=== PATIENT | male | born 1955 | race American Indian/Alaskan Native ===

== ENCOUNTER 2018-08-05 14:09 | Inpatient (IN) | payer MEDICARE ==
[2018-08-05] MEDS ORDERED: VANCOMYCIN 2,000 MG in NACL 0.9% 500 ML 500 ML IV ONE ×2 (14:52→15:30)
[2018-08-05] MEDS ORDERED: NACL 0.9% 1000 ML 1,000 ML IV ONE (14:54)
[2018-08-05] MEDS ORDERED: ZOSYN/NS 4.5GM/100ML 4.5 GM/100 ML VIAL IV SCH (15:00)
[2018-08-05] MEDS ORDERED: VANCOMYCIN PHARMACY TO DOSE IV SCH ×2 (15:00→23:00)
--- NOTE | 2018-08-05 15:02 | Emergency Department Report ---
- General Chief complaint: Wound/Laceration Stated complaint: OPEN SORES/HIGH GLUCOSE Time Seen by Provider: 08/05/18 14:44 Source: patient Mode of arrival: Wheelchair Limitations: Physical Limitation - History of Present Illness Initial comments: Mr. Prescott is a 62-year-old male with history of hypertension, insulin dependent diabetes, gangrene right lower extremity status post [id number] amputation in September 2017 presents with infected stump and infected right posterior thigh wound. Patient has foul odor coming from wound wound and purulent drainage from the distal portion of the stump. He has had generalized malaise with nausea vomiting and poor appetite. The wound has been present for 3 months. He became ill 2 days ago. Recently evaluated at [facility] in the emergency department. The daughter explained "they did not do anything.". He doesn't have a PCP. Referred to the diabetes clinic during his ED visit.. Next appointment at [place] [facility] scheduled for September. [id number] amputation occurred September 2017 for gangrene which originated from a foot ulcer. Diabetes is poorly controlled. Patient does smoke tobacco. - Related Data Allergies Allergy/AdvReac Type Severity Reaction Status Date / Time No Known Allergies Allergy Unverified 08/05/18 14:15 Abscess Boil HPI - HPI Chief Complaint: Wound/Laceration Stated Complaint: OPEN SORES/HIGH GLUCOSE Time Seen by Provider: 08/05/18 14:44 Allergies/Adverse Reactions: Allergies Allergy/AdvReac Type Severity Reaction Status Date / Time No Known Allergies Allergy Unverified 08/05/18 14:15 ED Review of Systems ROS: Stated complaint: OPEN SORES/HIGH GLUCOSE Other details as noted in HPI Comment: All other systems reviewed and negative Constitutional: malaise. denies: fever Respiratory: denies: cough Gastrointestinal: nausea, vomiting ED Past Medical Hx - Past Medical History Previous Medical History?: Yes Hx Hypertension: Yes Hx Diabetes: Yes Additional medical history: AMPUTATEE gangrene - Surgical History Additional Surgical History: RIGHT LEG - Social History Smoking Status: Current Every Day Smoker Substance Use Type: Alcohol (daily) ED Physical Exam - General Limitations: Physical Limitation General appearance: alert, in no apparent distress, other (appears chronically ill, appears in poor health) - Head Head exam: Present: atraumatic, normocephalic - Eye Eye exam: Present: EOMI. Absent: scleral icterus, conjunctival injection - ENT ENT exam: Present: mucous membranes dry, other (poor dentition and missing multiple teeth, remaining teeth decaying) - Neck Neck exam: Present: full ROM. Absent: tenderness, meningismus - Respiratory Respiratory exam: Present: normal lung sounds bilaterally. Absent: wheezes, rales, rhonchi - Cardiovascular Cardiovascular Exam: Present: normal rhythm, tachycardia. Absent: rubs, gallop - GI/Abdominal GI/Abdominal exam: Present: soft. Absent: distended, tenderness, guarding, rebound - Neurological Exam Neurological exam: Present: alert, oriented X3 - Psychiatric Psychiatric exam: Present: normal affect, normal mood - Other Other exam information: Purulent drainage from ulcer distal stump, large necrotic wound posterior thigh malodorous ED Course Vital Signs 08/05/18 14:16 Temperature 97.8 F Pulse Rate 107 H Respiratory 18 Rate Blood Pressure 130/78 O2 Sat by Pulse 98 Oximetry ED Medical Decision Making - Lab Data Result diagrams: 08/05/18 15:30 08/05/18 15:30 Laboratory Results - last 24 hr 08/05/18 08/05/18 08/05/18 14:23 15:30 15:30 WBC 9.6 RBC 5.42 H Hgb 15.2 Hct 46.7 H MCV 86 MCH 28 MCHC 33 RDW 15.5 H Plt Count 238 Lymph % (Auto) 19.0 Kidder % (Auto) 8.2 H Eos % (Auto) 0.4 Baso % (Auto) 0.9 Lymph # 1.8 Kidder # 0.8 Eos # 0.0 Baso # 0.1 Seg Neutrophils % 71.5 H Seg Neutrophils # 6.8 Sodium 128 L Potassium 4.5 Chloride 91.1 L Carbon Dioxide 19 L Anion Gap 22 BUN 31 H Creatinine 1.5 Estimated GFR 48 BUN/Creatinine Ratio 21 Glucose 414 H POC Glucose 339 H Calcium 10.7 H Total Bilirubin 0.30 AST 9 ALT 9 Alkaline Phosphatase 145 H Total Protein 9.4 H Albumin 3.6 L Albumin/Globulin Ratio 0.6 - Medical Decision Making Severely infected wound and abscess of distal stump and diabetic patient, admitted to the hospitalist service in fair condition. Upon review of labs, +relative hypovolemia with history of nausea vomiting. elevated BUN and and creatinine with hyponatremia. Patient does admit to history of daily alcohol use. He explains that he drinks beer and "liquor". Suspect possible beer [place]ia Critical Care Time: Yes Critical care time in (mins) excluding proc time.: 40 Critical care attestation.: If time is entered above; I have spent that time in minutes in the direct care of this critically ill patient, excluding procedure time. 40 minutes of critical care time excluding procedures were used in the care of the patient. Patient required multiple assessments and interventions. I reviewed the electronic medical record. I spoke with consultants involved in the care of the patient. ED Disposition Clinical Impression: Infected wound, Infection of amputation stump, Insulin dependent diabetes mellitus Disposition: OP ADMIT IP TO THIS HOSP Is pt being admited?: Yes Does the pt Need Aspirin: No Condition: Stable
[2018-08-05 15:54] LABS: Basophils # (Auto) 0.1 K/mm3 (0.0-0.1); Basophils % (Auto) 0.9 % (0.0-1.8); Eosinophils % (Auto) 0.4 % (0.0-4.3); Hematocrit 46.7 % (35.5-45.6); Hemoglobin 15.2 gm/dl (11.8-15.2); Lymphocytes # (Auto) 1.8 K/mm3 (1.2-5.4); Mean Corpuscular HGB Conc 33 % (32-34); Mean Corpuscular Volume 86 fl (84-94); Monocytes # (Auto) 0.8 K/mm3 (0.0-0.8); Monocytes % (Auto) 8.2 % (0.0-7.3); Platelet Count 238 K/mm3 (140-440); Red Blood Count 5.42 M/mm3 (3.65-5.03); Red Cell Distribution Width 15.5 % (13.2-15.2)
[2018-08-05 16:14] LABS: Albumin 3.6 g/dL (3.9-5); Calcium 10.7 mg/dL (8.4-10.2)
--- NOTE | 2018-08-05 17:24 | XRay Report ---
FINAL REPORT EXAM: XR FEMUR 2+V RT HISTORY: infected wound history of diabetes TECHNIQUE: Frontal and lateral views right femur Comparison: None FINDINGS: There is a previous amputation at the level of the proximal tibia and fibula. There is evidence of degenerative change of the patellofemoral joint. The tibiofemoral joint is not well evaluated with this study. There is no evidence of fracture, subluxation, lytic or blastic change in the visualized bony structu res. There is atherosclerotic vascular calcification. There is no evidence of air/gas in the soft tissues. IMPRESSION: 1. Previous below the knee amputation. 2. No evidence of fracture, subluxation, lytic or blastic change or periosteal reaction. If there is a clinical concern for osteomyelitis and if there is no clinical contraindication, MRI may be helpful . 3. Degenerative change patellofemoral joint. 4. Atherosclerotic vascular calcification.
[2018-08-05] MEDS: ZOSYN/NS 4.5GM/100ML 4.5 GM/100 ML VIAL IV SCH (18:52)
[2018-08-05] MEDS ORDERED: REGLAN IV PRN (22:19)
[2018-08-05] MEDS ORDERED: SODIUM CHLORIDE FLUSH SYRINGE 10 ML IV PRN (22:19)
[2018-08-05] MEDS ORDERED: TYLENOL PO PRN (22:19)
[2018-08-05] MEDS ORDERED: ZOFRAN IV PRN (22:19)
[2018-08-05] MEDS ORDERED: NACL 0.9% 1000 ML 1,000 ML IV SCH (23:00)
[2018-08-06] MEDS: UNASYN/NS 3 GM/100 ML 3 GM/100 ML BAG IV SCH ×5 (00:51→23:38)
[2018-08-06] MEDS ORDERED: VANCOMYCIN 1,750 MG in NACL 0.9% 500 ML 500 ML IV SCH (04:00)
[2018-08-06] MEDS: PERCOCET 5/325 PO PRN ×2 (04:17→21:37)
[2018-08-06 05:43] LABS: Basophils # (Auto) 0.1 K/mm3 (0.0-0.1); Basophils % (Auto) 0.8 % (0.0-1.8); Eosinophils # (Auto) 0.1 K/mm3 (0.0-0.4); Eosinophils % (Auto) 1.5 % (0.0-4.3); Hematocrit 39.8 % (35.5-45.6); Hemoglobin 13.1 gm/dl (11.8-15.2); Lymphocytes % (Auto) 24.9 % (13.4-35.0); Mean Corpuscular HGB Conc 33 % (32-34); Mean Corpuscular Volume 86 fl (84-94); Monocytes # (Auto) 0.9 K/mm3 (0.0-0.8); Monocytes % (Auto) 11.2 % (0.0-7.3); Platelet Count 192 K/mm3 (140-440); Red Blood Count 4.63 M/mm3 (3.65-5.03); Red Cell Distribution Width 15.4 % (13.2-15.2)
--- NOTE | 2018-08-06 06:46 | Event Note ---
Date: 08/05/18 See dictated H/p in reports Cellulitis/Open wound LLE
--- NOTE | 2018-08-06 08:00 | History and Physical Report ---
CHIEF COMPLAINT: Foul smelling drainage from the distal portion of the right lower extremity. HISTORY OF PRESENT ILLNESS: A 62-year-old male with history of poorly controlled diabetes, hypertension, below-knee amputation secondary to gangrene of the right lower extremity, comes in for 2 wounds, one on the stump and one on the right medial aspect of the lower part of the thigh with drainage of foul smelling pus. The wound has been there for the last 3 months. The patient has been evaluated at [facility] and was discharged. Does not have a PCP. Has a low-grade fever. Below-knee amputation was in September 2017 secondary to gangrene in the right foot. The patient is not a smoker. PAST MEDICAL HISTORY: Significant for diabetes and hypertension, right below-knee amputation. PAST SURGICAL HISTORY: As mentioned, right below-knee amputation. SOCIAL HISTORY: Smokes over a pack a day. Alcohol on a regular basis. FAMILY HISTORY: Hypertension. REVIEW OF SYSTEMS: Significant for 2 draining wounds on the right lower extremity, one on the stump and one on the medial aspect of the lower part of the thigh 3 cm x 3 cm. Otherwise, review of systems negative. PHYSICAL EXAMINATION: GENERAL: A young elderly male. VITAL SIGNS: Blood pressure is 150/78. Temperature is 98.4. Pulse is 91. Respirations are 16. HEENT: Unremarkable. Pupils equal and reactive. NECK: Supple, no lymphadenopathy, no thyromegaly. LUNGS: Clear to auscultation and percussion. Good air entry. CARDIOVASCULAR SYSTEM: S1, S2 heard. No gallop, no murmur, no rub. Apical impulse in left fifth intercostal space in midclavicular line. ABDOMEN: Soft and benign. No hepatosplenomegaly. No guarding, no rigidity. Hernial orifices are normal. EXTREMITIES: Right lower extremity below knee amputation present. On the stump, there is a small wound with drainage on the lateral aspect of the stump, 2 cm x 2 cm. Also, there is irregular ulcer on the right medial aspect of the lower part of the thigh, 3 inches x 3 inches with a depth of about 0.5 cm. Foul smelling drainage present. CENTRAL NERVOUS SYSTEM: Alert and oriented x 4. LABORATORY DATA: Significant for white count of 9600, hemoglobin of 15.2 and 46.7, platelet count of 238,000. Sodium is low 128. Glucose is high 339. BUN and creatinine is 31 and 1.5. Total protein is 9.4. Albumin is 3.6, calcium is 10.7. DIAGNOSTIC DATA: Right femur x-ray shows below-knee amputation. No evidence of fracture. No osteomyelitis. ASSESSMENT AND PLAN: 1. Right lower extremity open wound with drainage, and cellulitis. IV antibiotics, Unasyn and vancomycin initiated. Wound care initiated. Surgical consult also requested. 2. Insulin-dependent diabetes, poorly controlled. Adjust insulin dosage. The patient on Levemir 70 units, which is continued. His medication review shows 50 units of Humalog 3 times a day, to be confirmed and restarted. In the meantime, high dose sliding scale coverage. 3. Hyperlipidemia. Continue atorvastatin. 4. Hypertension. Continue lisinopril. 5. Deep venous thrombosis prophylaxis, Lovenox 40 mg subcutaneous daily. In summary, the patient has right lower extremity cellulitis and 2 training open wounds, which needs wound care and antibiotic therapy. ID consult if necessary. Surgical consult requested. JOB# [id number] VSM/NTS NATHAN
[2018-08-06 08:09] LABS: Alanine Aminotransferase 7 units/L (7-56); Albumin 2.9 g/dL (3.9-5); BUN/Creatinine Ratio 22; Blood Urea Nitrogen 26 mg/dL (9-20); Calcium 9.4 mg/dL (8.4-10.2); Hemolysis Index 3
[2018-08-06] MEDS: ZESTRIL PO SCH (09:28)
[2018-08-06] MEDS: PEPCID PO SCH ×2 (09:29→21:37)
[2018-08-06] MEDS: HumaLOG SUB-Q SCH ×3 (09:34→17:19)
--- NOTE | 2018-08-06 11:49 | Consultation ---
History of Present Illness Consult date: 08/06/18 Reason for consult: wound care Requesting physician: [facility] WHEELER Chief complaint: multiple painful wounds - History of present illness History of present illness: 62yo M with poorly controlled diabetes and a current smoker who presented to the ED due to wound pain. Patient has had chronic wounds for many months. He had an amputation of the right leg in September 2017. He has multiple wounds that are chronically draining. He does not have any regular wound care and he is not established with any wound care center. Denies any recent fevers or chills. His main issue is pain at the wounds. Past History Past Medical History: diabetes, hypertension Past Surgical History: Other (RLE amputation in 10/06) Social history: smoking, alcohol abuse. denies: prescription drug abuse, IV juliann g use Family history: no significant family history Medications and Allergies Allergies Allergy/AdvReac Type Severity Reaction Status Date / Time No Known Allergies Allergy Unverified 08/05/18 14:15 Home Medications Medication Instructions Recorded Confirmed Last Taken Type AtorvaSTATin [Lipitor] 40 mg PO QHS 08/05/18 08/05/18 Unknown History Humalog 100 UNITS/ML Kwikpen 50 units SQ TID 08/05/18 08/05/18 Unknown History Insulin Detemir [Levemir] 70 unit SQ HS 08/05/18 08/05/18 Unknown History Lisinopril [Zestril TAB] 40 mg PO QDAY 08/05/18 08/05/18 Unknown History Metformin HCl 500 mg PO BID 08/05/18 08/05/18 Unknown History Active Meds: Active Medications Acetaminophen (Tylenol) 650 mg PO Q4H PRN PRN Reason: Pain MILD(1-3)/Fever >100.5/SY Atorvastatin Calcium (Lipitor) 40 mg PO QHS [facility] Famotidine (Pepcid) 20 mg PO BID [facility] Last Admin: 08/06/18 09:29 Dose: 20 mg Documented by: Hydromorphone HCl (Dilaudid) 0.5 mg IV Q3H PRN PRN Reason: Pain , Severe (7-10) Ampicillin Sodium/Sulbactam Sodium (Unasyn/Ns 3 Gm/100 Ml) 3 gm in 100 mls @ 100 mls/hr IV Q6HR [facility]; Protocol Last Admin: 08/06/18 06:17 Dose: 100 mls/hr Documented by: Vancomycin HCl 1,250 mg/ (Sodium Chloride) 275 mls @ 166.667 mls/hr IV Q12HR [facility] Insulin Glargine (Lantus) 70 units SUB-Q QHS [facility] Insulin Human Lispro (Humalog) 0 unit SUB-Q ACHS [facility]; Protocol Last Admin: 08/06/18 09:34 Dose: Not Given Documented by: Lisinopril (Zestril) 40 mg PO QDAY [facility] Last Admin: 08/06/18 09:28 Dose: 40 mg Documented by: Metoclopramide HCl (Reglan) 10 mg IV Q6H PRN PRN Reason: Nausea And Vomiting Ondansetron HCl (Zofran) 4 mg IV Q8H PRN PRN Reason: Nausea And Vomiting Oxycodone/Acetaminophen (Percocet 5/325) 1 tab PO Q6H PRN PRN Reason: Pain, Moderate (4-6) Last Admin: 08/06/18 04:17 Dose: 1 tab Documented by: Sodium Chloride (Sodium Chloride Flush Syringe 10 Ml) 10 ml IV BID [facility] Sodium Chloride (Sodium Chloride Flush Syringe 10 Ml) 10 ml IV PRN PRN PRN Reason: LINE FLUSH Review of Systems - Constitutional chronic pain, no weight loss, no fever, no chills - Cardiovascular no chest pain - Respiratory no cough, no shortness of breath - Gastrointestinal no abdominal pain, no nausea, no vomiting - Muskuloskeletal right: knee pain, other (right thigh pain) - Integumentary wounds - Endocrine polyuria Exam Vital Signs Temp Pulse Resp BP Pulse Ox 97.8 F 107 H 18 130/78 98 08/05/18 14:16 08/05/18 14:16 08/05/18 14:16 08/05/18 14:16 08/05/18 14:16 - General physical appearance Positive: no distress, no pain, other (pleasant. Does not appear ill) - Eyes Positive: normal occular movement - Respiratory Positive: normal expansion, normal respiratory effort - Integumentary other (Multiple wounds are seen in the RLE stump site, medial aspect of the right thigh, and scrotum.) - Neurologic Neurologic: alert and oriented to time, place and person - Musculoskeletal other (contracture noted of right knee) - Psychiatric Psychiatric: appropriate mood/affect, cooperative Results - Labs 08/06/18 05:15 08/06/18 05:15 Abnormal lab results 08/05/18 08/05/18 08/05/18 Range/Units 14:23 15:30 15:30 RBC 5.42 H (3.65-5.03) M/mm3 Hct 46.7 H (35.5-45.6) % RDW 15.5 H (13.2-15.2) % Eddy % (Auto) 8.2 H (0.0-7.3) % Eddy # (0.0-0.8) K/mm3 Seg Neutrophils % 71.5 H (40.0-70.0) % Sodium 128 L (137-145) mmol/L Chloride 91.1 L (98-107) mmol/L Carbon Dioxide 19 L (22-30) mmol/L BUN 31 H (9-20) mg/dL Glucose 414 H (75-100) mg/dL POC Glucose 339 H (70-105) Hemoglobin A1c (4-6) % Calcium 10.7 H (8.4-10.2) mg/dL Alkaline Phosphatase 145 H (35-129) units/L Total Protein 9.4 H (6.3-8.2) g/dL Albumin 3.6 L (3.9-5) g/dL 08/05/18 08/06/18 08/06/18 Range/Units 22:43 05:15 05:15 RBC (3.65-5.03) M/mm3 Hct (35.5-45.6) % RDW 15.4 H (13.2-15.2) % Eddy % (Auto) 11.2 H (0.0-7.3) % Eddy # 0.9 H (0.0-0.8) K/mm3 Seg Neutrophils % (40.0-70.0) % Sodium 134 L (137-145) mmol/L Chloride (98-107) mmol/L Carbon Dioxide 18 L (22-30) mmol/L BUN 26 H (9-20) mg/dL Glucose 365 H (75-100) mg/dL POC Glucose (70-105) Hemoglobin A1c 14.2 H (4-6) % Calcium (8.4-10.2) mg/dL Alkaline Phosphatase (35-129) units/L Total Protein (6.3-8.2) g/dL Albumin 2.9 L (3.9-5) g/dL 08/06/18 Range/Units 11:23 RBC (3.65-5.03) M/mm3 Hct (35.5-45.6) % RDW (13.2-15.2) % Eddy % (Auto) (0.0-7.3) % Eddy # (0.0-0.8) K/mm3 Seg Neutrophils % (40.0-70.0) % Sodium (137-145) mmol/L Chloride (98-107) mmol/L Carbon Dioxide (22-30) mmol/L BUN (9-20) mg/dL Glucose (75-100) mg/dL POC Glucose 360 H (70-105) Hemoglobin A1c (4-6) % Calcium (8.4-10.2) mg/dL Alkaline Phosphatase (35-129) units/L Total Protein (6.3-8.2) g/dL Albumin (3.9-5) g/dL Diabetes panel 08/05/18 08/05/18 08/06/18 Range/Units 15:30 22:43 05:15 Sodium 128 L 134 L (137-145) mmol/L Potassium 4.5 4.5 (3.6-5.0) mmol/L Chloride 91.1 L 101.3 (98-107) mmol/L Carbon Dioxide 19 L 18 L (22-30) mmol/L BUN 31 H 26 H (9-20) mg/dL Creatinine 1.5 1.2 (0.8-1.5) mg/dL Glucose 414 H 365 H (75-100) mg/dL Hemoglobin A1c 14.2 H (4-6) % Calcium 10.7 H 9.4 (8.4-10.2) mg/dL AST 9 9 (5-40) units/L ALT 9 7 (7-56) units/L Alkaline Phosphatase 145 H 111 (35-129) units/L Total Protein 9.4 H 7.5 D (6.3-8.2) g/dL Albumin 3.6 L 2.9 L (3.9-5) g/dL Calcium panel 08/05/18 08/06/18 Range/Units 15:30 05:15 Calcium 10.7 H 9.4 (8.4-10.2) mg/dL Albumin 3.6 L 2.9 L (3.9-5) g/dL Pituitary panel 08/05/18 08/06/18 Range/Units 15:30 05:15 Sodium 128 L 134 L (137-145) mmol/L Potassium 4.5 4.5 (3.6-5.0) mmol/L Chloride 91.1 L 101.3 (98-107) mmol/L Carbon Dioxide 19 L 18 L (22-30) mmol/L BUN 31 H 26 H (9-20) mg/dL Creatinine 1.5 1.2 (0.8-1.5) mg/dL Glucose 414 H 365 H (75-100) mg/dL Calcium 10.7 H 9.4 (8.4-10.2) mg/dL Adrenal panel 08/05/18 08/06/18 Range/Units 15:30 05:15 Sodium 128 L 134 L (137-145) mmol/L Potassium 4.5 4.5 (3.6-5.0) mmol/L Chloride 91.1 L 101.3 (98-107) mmol/L Carbon Dioxide 19 L 18 L (22-30) mmol/L BUN 31 H 26 H (9-20) mg/dL Creatinine 1.5 1.2 (0.8-1.5) mg/dL Glucose 414 H 365 H (75-100) mg/dL Calcium 10.7 H 9.4 (8.4-10.2) mg/dL Total Bilirubin 0.30 0.20 (0.1-1.2) mg/dL AST 9 9 (5-40) units/L ALT 9 7 (7-56) units/L Alkaline Phosphatase 145 H 111 (35-129) units/L Total Protein 9.4 H 7.5 D (6.3-8.2) g/dL Albumin 3.6 L 2.9 L (3.9-5) g/dL Assessment and Plan Pt stable. I think he has more chronic wounds rather than some acute infection. He primarily needs a good debridement and then a alf wound care plan. I agree with having the nurse see him. Then, he can get plugged into the clin ic. Time=45min - Patient Problems (1) Open wound of right thigh Current Visit: Yes Status: Acute Qualifiers: Encounter type: initial encounter Qualified Code(s): S71.101A - Unspecified open wound, right thigh, initial encounter Plan to address problem: Pt stable. Appears to have a chronically draining wound. Would benefit from debridement. Due to his pain, we will perform this in the operating room with anesthesia. He is an agreement for this. Procedure, risks, benefits were discussed. All questions were answered. Consent was obtained. He ultimately needs to be established without wound care center. He needs a good long-term wound care. time=45min (2) Open wound of scrotum and testes Current Visit: Yes Status: Acute Qualifiers: Encounter type: initial encounter Qualified Code(s): S31.30XA - Unspecified open wound of scrotum and testes, initial encounter Plan to address problem: pt stable. The skin appearance in the perineal and groin areas are suggestive of hidradenitis changes. We will examine and debride the scrotal wound in the OR. (3) Open wound of right lower leg Current Visit: Yes Status: Acute Qualifiers: Encounter type: initial encounter Qualified Code(s): S81.801A - Unspecified open wound, right lower leg, initial encounter Plan to address problem: Pt stable. Pt stable. Appears to have a chronically draining wound. Would benefit from debridement. Due to his pain, we will perform this in the operating room with anesthesia. He is an agreement for this. Procedure, risks, benefits were discussed. All questions were answered. Consent was obtained.
[2018-08-06] MEDS: SODIUM CHLORIDE FLUSH SYRINGE 10 ML IV SCH ×2 (12:58→21:45)
--- NOTE | 2018-08-06 15:30 | Progress Note ---
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 Patient complaining of foul odor from the wound and purulent drainage from distal portion of the stump, the wound has imprisoned for 3 months and he became very ill 2 days prior to presentation, was complaining of nausea vomiting and poor appetite malaise Prognosis cellulitis of R LE stump Open wound of scrotum and testes Open wound of right lower leg Hypertension Diabetes moderate malnutrition Plan Empiric antibiotics optimize insulin dose Optimize meds for chronic conditions General surgery consult appreciated, patient to go to the or for debridement bundle tier consult, advised on balanced diet rich in protein and healthy fats Prophylaxis chemical History Interval history: Patient continues to have drainage from right LE stump, denies pain, he has no other complaints. Review of systems Constitutional: No fevers, no malaise, no joint pains CVS: No chest pain, no orthopnea, no dyspnea on exertion, no pedal edema GI: No abdominal pain, no diarrhea, no vomiting, no constipation Respiratory: No shortness of breath, no wheezing, no coughing Hospitalist Physical - Physical exam Narrative exam: General.: Appears well, no distress, nontoxic HEENT: Moist mucous membranes, extraocular muscles intact, no lymphadenopathy Neck: supple Cardiac: S1-S2 heard Lungs: clear to auscultation bilaterally Abdomen: soft , nontender, nondistended, bowel sounds positive Extremities/skin; Multiple wounds are seen in the RLE stump site, medial aspect of the right thigh, and scrotum Neurologic: no gross focal deficits Psych: calm, and cooperative - Constitutional Vitals: Temp Pulse Resp BP Pulse Ox 97.9 F 83 20 145/74 93 08/06/18 11:24 08/06/18 11:24 08/06/18 11:24 08/06/18 11:24 08/06/18 11:24 Results - Labs CBC & Chem 7: 08/06/18 05:15 08/06/18 05:15 Labs: Laboratory Last Values WBC 7.9 K/mm3 (4.5-11.0) 08/06/18 05:15 RBC 4.63 M/mm3 (3.65-5.03) 08/06/18 05:15 Hgb 13.1 gm/dl (11.8-15.2) 08/06/18 05:15 Hct 39.8 % (35.5-45.6) D 08/06/18 05:15 MCV 86 fl (84-94) 08/06/18 05:15 MCH 28 pg (28-32) 08/06/18 05:15 MCHC 33 % (32-34) 08/06/18 05:15 RDW 15.4 % (13.2-15.2) H 08/06/18 05:15 Plt Count 192 K/mm3 (140-440) 08/06/18 05:15 Lymph % (Auto) 24.9 % (13.4-35.0) 08/06/18 05:15 [place] % (Auto) 11.2 % (0.0-7.3) H 08/06/18 05:15 Eos % (Auto) 1.5 % (0.0-4.3) 08/06/18 05:15 Baso % (Auto) 0.8 % (0.0-1.8) 08/06/18 05:15 Lymph # 2.0 K/mm3 (1.2-5.4) 08/06/18 05:15 [place] # 0.9 K/mm3 (0.0-0.8) H 08/06/18 05:15 Eos # 0.1 K/mm3 (0.0-0.4) 08/06/18 05:15 Baso # 0.1 K/mm3 (0.0-0.1) 08/06/18 05:15 Seg Neutrophils % 61.6 % (40.0-70.0) 08/06/18 05:15 Seg Neutrophils # 4.9 K/mm3 (1.8-7.7) 08/06/18 05:15 Sodium 134 mmol/L (137-145) L 08/06/18 05:15 Potassium 4.5 mmol/L (3.6-5.0) 08/06/18 05:15 Chloride 101.3 mmol/L (98-107) 08/06/18 05:15 Carbon Dioxide 18 mmol/L (22-30) L 08/06/18 05:15 Anion Gap 19 mmol/L 08/06/18 05:15 BUN 26 mg/dL (9-20) H 08/06/18 05:15 Creatinine 1.2 mg/dL (0.8-1.5) 08/06/18 05:15 Estimated GFR > 60 ml/min 08/06/18 05:15 BUN/Creatinine Ratio 22 % 08/06/18 05:15 Glucose 365 mg/dL (75-100) H 08/06/18 05:15 POC Glucose 360 (70-105) H 08/06/18 11:23 Hemoglobin A1c 14.2 % (4-6) H 08/05/18 22:43 Calcium 9.4 mg/dL (8.4-10.2) 08/06/18 05:15 Total Bilirubin 0.20 mg/dL (0.1-1.2) 08/06/18 05:15 AST 9 units/L (5-40) 08/06/18 05:15 ALT 7 units/L (7-56) 08/06/18 05:15 Alkaline Phosphatase 111 units/L (35-129) 08/06/18 05:15 Total Protein 7.5 g/dL (6.3-8.2) D 08/06/18 05:15 Albumin 2.9 g/dL (3.9-5) L 08/06/18 05:15 Albumin/Globulin Ratio 0.6 % 08/06/18 05:15 Nutrition/Malnutrition Assess - Dietary Evaluation Nutrition/Malnutrition Findings: Nutrition Notes Start: 08/06/18 12:52 Freq: Status: Active Protocol: Document 08/06/18 12:52 LM (Rec: 08/06/18 13:39 LM [id number]) Co-Sign 08/06/18 12:52 LP Nutrition Notes 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 Pt did not appear to be 69.5 kg Subjective/Other Information Consult for skin risk. Kolby score is 16. Pt stated his appetite has not been good [employer] . Pt said he ate a couple bites of his breakfast. Pt stated he has no problems chewing or swallowing. Pt said he does not monitor DM at home. Discussed DM with pt. Burn Absent Trauma Absent #2 Nutrition Diagnosis Food and nutrition-related knowledge deficit Etiology DM As Evidenced by Signs and Symptoms Hgb A1C 14.2, BG 365 #1 Nutrition Diagnosis Increased nutrient needs ( specify in comment below) Comments: Protein Etiology Wound healing As Evidenced by Signs and Symptoms thigh and stump wound Is patient on ventilator? No Is Patient Ambulatory and/or Out of Bed No REE-([facility]-confined to bed) [phone] Calculation Used for Recommendations [facility] Additional Notes Protein: 87-104 (1.25-1.5 g/kg ) Fluids: 1 mL/kcal Nutrition Intervention Change Diet Order: Continue consitent CHO Add Supplement/Snack (indicate name/kcal Breezy BID /protein ) Provides kCal: 190 Provides Protein (gm) 5 Teaching Recipient Patient Learning Readiness Fair Teaching Methods Discussion Handout Response to Teaching Verbalize understanding Education Handouts Provided CHO counting for DM Barriers to Learning Motivation RD phone number provided Yes Patient aware of follow up options Yes Goal #1 Meet at least 75% of energy and protein needs Goal #2 Wound healing Anticipated Discharge Needs: Consitent CHO Follow-Up By: 08/11/18 Additional Comments F/U for intakes, need for ONS, weight
[2018-08-06] MEDS: GLUCOPHAGE PO SCH (21:37)
[2018-08-06] MEDS: VANCOMYCIN 1,250 MG in NACL 0.9% 250ML 250 ML IV SCH (21:44)
[2018-08-06] MEDS ORDERED: LANTUS SUB-Q SCH ×3 (22:00)
[2018-08-06] MEDS ORDERED: LOVENOX SUB-Q SCH (22:00)
[2018-08-06] MEDS: ZOSYN/NS 4.5GM/100ML 4.5 GM/100 ML VIAL IV SCH (22:07)
[2018-08-07] MEDS: HumaLOG SUB-Q SCH ×7 (00:52→22:54)
[2018-08-07] MEDS: UNASYN/NS 3 GM/100 ML 3 GM/100 ML BAG IV SCH ×3 (05:26→17:21)
[2018-08-07] MEDS ORDERED: HumaLOG SUB-Q SCH (07:30)
[2018-08-07] MEDS: SODIUM CHLORIDE FLUSH SYRINGE 10 ML IV SCH ×2 (10:30→22:53)
[2018-08-07] MEDS: GLUCOPHAGE PO SCH ×2 (10:30→22:53)
[2018-08-07] MEDS: ZESTRIL PO SCH (10:30)
[2018-08-07] MEDS: PEPCID PO SCH ×2 (10:30→22:53)
[2018-08-07] MEDS: VANCOMYCIN 1,250 MG in NACL 0.9% 250ML 250 ML IV SCH ×2 (11:15→22:52)
[2018-08-07] MEDS ORDERED: PEPCID IV ONE (13:25)
[2018-08-07] MEDS ORDERED: XYLOCAINE MPF 2% ONE (13:38)
[2018-08-07] MEDS ORDERED: SUBLIMAZE ONE (13:38)
[2018-08-07] MEDS ORDERED: DIPRIVAN 10 MG/ML IV ONE (13:43)
[2018-08-07] MEDS: NACL 0.9% 1000 ML 1,000 ML IV SCH ×2 (13:45→17:19)
[2018-08-07] MEDS ORDERED: HYDROGEN PEROXIDE ONE (14:00)
--- NOTE | 2018-08-07 14:00 | Anesthesia Consultation ---
Anesthesia Consult and Med Hx Date of service: 08/07/18 - Airway Anesthetic Teeth Evaluation: Poor ROM Head & Neck: Adequate Mental/Hyoid Distance: Adequate Mallampati Class: Class III Intubation Access Assessment: Possibly Difficult - Pulmonary Exam CTA: Yes - Cardiac Exam Cardiac Exam: RRR - Pre-Operative Health Status ASA Pre-Surgery Classification: ASA4 Proposed Anesthetic Plan: General - Pulmonary Hx Smoking: Yes Hx Respiratory Symptoms: No Hx Sleep Apnea: No - Cardiovascular System Hx Hypertension: Yes Hx Coronary Artery Disease: No Hx Pacemaker: No - Gastrointestinal Hx Gastroesophageal Reflux Disease: No - Endocrine Hx Renal Disease: No Hx End Stage Renal Disease: No Hx Insulin Dependent Diabetes: Yes Hx Thyroid Disease: No - Hematic Hx Anemia: No - Other Systems Hx Alcohol Use: Yes (Everyday) Hx Cancer: No Hx Obesity: Yes - Additional Comments Anesthesia Medical History Comments: No GAC, No FHAC
[2018-08-07] MEDS ORDERED: NACL 0.9% IR ONE (14:57)
[2018-08-07] MEDS ORDERED: DILAUDID ONE (15:02)
--- NOTE | 2018-08-07 15:03 | Anesthesia Day of Surgery ---
Anesthesia Day of Surgery - Day of Surgery Patient Examined: Yes Patient H&P Reviewed: Yes Patient is NPO: Yes
[2018-08-07] MEDS ORDERED: MARCAINE-EPI 0.5%-1:200,000 INFILTRATI ONE ×2 (15:04→15:15)
--- NOTE | 2018-08-07 15:23 | Post Operative Note ---
Date of procedure: 08/07/18 (Dictation:[id number]) Pre-op diagnosis: multiple chronic wounds on lower extremities and scrotum Post-op diagnosis: other (multiple chronic wounds on lower extremities.) Findings: chronic inflammatory tissue. No evidence of actual infection Procedure: debridement of bilateral lower extremity wounds Anesthesia: GETA Surgeon: CONG CHRISTIANSEN Estimated blood loss: minimal Pathology: none Condition: stable Disposition: PACU
--- NOTE | 2018-08-07 15:54 | Progress Note ---
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 Review of systems Constitutional: No fevers, no malaise, no joint pains CVS: No chest pain, no orthopnea, no dyspnea on exertion, no pedal edema GI: No abdominal pain, no diarrhea, no vomiting, no constipation Respiratory: No shortness of breath, no wheezing, no coughing Hospitalist Physical - Physical exam Narrative exam: General.: Appears well, no distress, nontoxic HEENT: Moist mucous membranes, extraocular muscles intact, no lymphadenopathy Neck: supple Cardiac: S1-S2 heard Lungs: clear to auscultation bilaterally Abdomen: soft , nontender, nondistended, bowel sounds positive Extremities/skin; Multiple wounds are seen in the RLE stump site, medial aspect of the right thigh, and scrotum Neurologic: no gross focal deficits Psych: calm, and cooperative - Constitutional Vitals: Temp Pulse Resp BP Pulse Ox 98.8 F 78 16 125/60 99 08/07/18 13:00 08/07/18 13:00 08/07/18 13:00 08/07/18 13:00 08/07/18 13:00 Results - Labs CBC & Chem 7: 08/06/18 05:15 08/06/18 05:15 Labs: Laboratory Last Values WBC 7.9 K/mm3 (4.5-11.0) 08/06/18 05:15 RBC 4.63 M/mm3 (3.65-5.03) 08/06/18 05:15 Hgb 13.1 gm/dl (11.8-15.2) 08/06/18 05:15 Hct 39.8 % (35.5-45.6) D 08/06/18 05:15 MCV 86 fl (84-94) 08/06/18 05:15 MCH 28 pg (28-32) 08/06/18 05:15 MCHC 33 % (32-34) 08/06/18 05:15 RDW 15.4 % (13.2-15.2) H 08/06/18 05:15 Plt Count 192 K/mm3 (140-440) 08/06/18 05:15 Lymph % (Auto) 24.9 % (13.4-35.0) 08/06/18 05:15 [place] % (Auto) 11.2 % (0.0-7.3) H 08/06/18 05:15 Eos % (Auto) 1.5 % (0.0-4.3) 08/06/18 05:15 Baso % (Auto) 0.8 % (0.0-1.8) 08/06/18 05:15 Lymph # 2.0 K/mm3 (1.2-5.4) 08/06/18 05:15 [place] # 0.9 K/mm3 (0.0-0.8) H 08/06/18 05:15 Eos # 0.1 K/mm3 (0.0-0.4) 08/06/18 05:15 Baso # 0.1 K/mm3 (0.0-0.1) 08/06/18 05:15 Seg Neutrophils % 61.6 % (40.0-70.0) 08/06/18 05:15 Seg Neutrophils # 4.9 K/mm3 (1.8-7.7) 08/06/18 05:15 Sodium 134 mmol/L (137-145) L 08/06/18 05:15 Potassium 4.5 mmol/L (3.6-5.0) 08/06/18 05:15 Chloride 101.3 mmol/L (98-107) 08/06/18 05:15 Carbon Dioxide 18 mmol/L (22-30) L 08/06/18 05:15 Anion Gap 19 mmol/L 08/06/18 05:15 BUN 26 mg/dL (9-20) H 08/06/18 05:15 Creatinine 1.2 mg/dL (0.8-1.5) 08/06/18 05:15 Estimated GFR > 60 ml/min 08/06/18 05:15 BUN/Creatinine Ratio 22 % 08/06/18 05:15 Glucose 365 mg/dL (75-100) H 08/06/18 05:15 POC Glucose 241 (70-105) H 08/07/18 12:05 Hemoglobin A1c 14.2 % (4-6) H 08/05/18 22:43 Calcium 9.4 mg/dL (8.4-10.2) 08/06/18 05:15 Total Bilirubin 0.20 mg/dL (0.1-1.2) 08/06/18 05:15 AST 9 units/L (5-40) 08/06/18 05:15 ALT 7 units/L (7-56) 08/06/18 05:15 Alkaline Phosphatase 111 units/L (35-129) 08/06/18 05:15 Total Protein 7.5 g/dL (6.3-8.2) D 08/06/18 05:15 Albumin 2.9 g/dL (3.9-5) L 08/06/18 05:15 Albumin/Globulin Ratio 0.6 % 08/06/18 05:15 Nutrition/Malnutrition Assess - Dietary Evaluation Nutrition/Malnutrition Findings: Nutrition Notes Start: 08/06/18 12:52 Freq: Status: Active Protocol: Document 08/06/18 12:52 LM (Rec: 08/06/18 13:39 LM [id number]) Co-Sign 08/06/18 12:52 LP Nutrition Notes Need for 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 Pt did not appear to be 69.5 kg Subjective/Other Information Consult for skin risk. Kolby score is 16. 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 Pt said he ate a couple bites of his breakfast. Pt stated he has no problems chewing or swallowing. Pt said he does not monitor DM at home. Discussed DM with pt. Burn Absent Trauma Absent #2 Nutrition Diagnosis Food and nutrition-related knowledge deficit Etiology DM As Evidenced by Signs and Symptoms Hgb A1C 14.2, BG 365 #1 Nutrition Diagnosis Increased nutrient needs ( specify in comment below) Comments: Protein Etiology Wound healing As Evidenced by Signs and Symptoms thigh and stump wound Is patient on ventilator? No Is Patient Ambulatory and/or Out of Bed No REE-([facility]-confined to bed) [phone] Calculation Used for Recommendations [facility] Additional Notes Protein: 87-104 (1.25-1.5 g/kg ) Fluids: 1 mL/kcal Nutrition Intervention Change Diet Order: Continue consitent CHO Add Supplement/Snack (indicate name/kcal Breezy BID /protein ) Provides kCal: 190 Provides Protein (gm) 5 Teaching Recipient Patient Learning Readiness Fair Teaching Methods Discussion Handout Response to Teaching Verbalize understanding Education Handouts Provided CHO counting for DM Barriers to Learning Motivation RD phone number provided Yes Patient aware of follow up options Yes Goal #1 Meet at least 75% of energy and protein needs Goal #2 Wound healing Anticipated Discharge Needs: Consitent CHO Follow-Up By: 08/11/18 Additional Comments F/U for intakes, need for ONS, weight
--- NOTE | 2018-08-07 18:06 | Operative Report ---
PREOPERATIVE DIAGNOSIS: Multiple chronic wounds on both lower extremities and scrotum. POSTOPERATIVE DIAGNOSIS: Multiple chronic wounds on both lower extremities. PROCEDURE: Debridement of multiple wounds on both lower extremities. ATTENDING SURGEON: Sarai Gibson MD ANESTHESIA: General. ESTIMATED BLOOD LOSS: Minimal. FLUIDS: 300 mL. FINDINGS: No evidence of active infection. The patient primarily had chronic inflammatory wounds with essentially scab-like tissue over the wounds. SPECIMENS: None. DRAINS: None. COMPLICATIONS: Stable, transferred to Recovery Room. INDICATIONS: This is a 62-year-old male with poorly controlled diabetes as well as smoking history, who presented due to pain in the lower extremities from his wounds. General Surgery was consulted due to concern of undrained infections. The patient says to be in need for evaluation and debridement of wounds in the operating room as they were too tender to examine and manage at the bedside. Procedure, risks, benefits were explained to the patient. Risks included but were not limited to infection, bleeding, pain, injury to surrounding structures, possible need for further procedures in the future. The patient understood and consented. OPERATIVE NOTE: The patient was brought down to the operating room and placed on the table in supine position. After adequate general anesthesia was established, patient's wounds were examined to determine positioning. Sterile prep and drape was performed. No SCDs were in place. Antibiotics were already scheduled and being given. A timeout was called. I began on the left lower extremity. There was a small opening towards the posterior aspect of the left thigh and there was a small amount of purulent drainage. It ended up being a 2 cm pocket that just needed to be irrigated out. There was no underlying abscess that was undrained. I think it was fluid that had just collected there and since he was not getting regular wound care, was not being cleaned out. Once we cleaned out the very small amount of fluid, there was no other infectious component and the cavity was very small. Ultimately, this wound was irrigated and then packed with iodoform. We then examined the scrotum. Initially what I thought to be a wound was actually a previous wound that had healed; however, the healing took place such that there was a crevice down the middle that looked like the wound. Once we spread out the tissue, we realized that it had completely lysed. There was no wound at the base of the scrotum. We then turned our attention to the right leg. He had one remaining stitch at his stump that we removed, it was a Prolene suture. There was no abscess cavity associated with it. The 1 cm wound that was to the right of it also did not track anywhere. It was very superficial, it was simply unepithelialized tissue. No infection was found there. His main area was on the medial and posterior aspect of the right thigh; what was thought to be multiple small abscess cavities when we evaluated him at the bedside, really turned out to be overlying tissue that was scab-like quality. In that I was able to essentially scrape off all of this tissue with blunt dissection; some sharp dissection was required, but underneath it, we found epithelialized tissue and areas of chronic inflammatory tissue, which we also bluntly debrided back to more healthy base. Hemostasis was achieved with electrocautery. There were no underlying pockets of purulent material. There was no active infection. It was simply wounds that had not been taken care of properly and some fluid that had accumulated there, but I saw no evidence of any infection and I saw really a lot of healing that had taken place with what was unusual soft scabbed like tissue over the top of it. Once hemostasis was achieved, wounds were clean gauze soaked with 0.5% Marcaine with epinephrine was applied to the wound on the posterior medial aspect of the right thigh. He also had a small area on the anterior aspect of the lower leg that we cleaned off in the same manner, then applied the dressing. ABDs were placed. Wound was wrapped with Kerlix and then Coban. We wrapped the left leg with Kerlix as well. The patient tolerated procedure well. There were no complications. All counts were correct. The patient was stable, transferred to Recovery. JOB# [id number] MICHELLE/EMMA
[2018-08-07] MEDS ORDERED: LANTUS SUB-Q SCH (22:00)
[2018-08-07] MEDS: PERCOCET 5/325 PO PRN (22:53)
[2018-08-08] MEDS: UNASYN/NS 3 GM/100 ML 3 GM/100 ML BAG IV SCH ×4 (01:21→18:00)
[2018-08-08] MEDS: HumaLOG SUB-Q SCH ×7 (08:57→23:30)
[2018-08-08] MEDS: GLUCOPHAGE PO SCH ×2 (08:59→23:31)
[2018-08-08] MEDS: PEPCID PO SCH ×2 (09:06→23:31)
[2018-08-08] MEDS: SODIUM CHLORIDE FLUSH SYRINGE 10 ML IV SCH ×2 (09:06→23:32)
[2018-08-08] MEDS: ZESTRIL PO SCH (09:06)
[2018-08-08] MEDS: VANCOMYCIN 1,250 MG in NACL 0.9% 250ML 250 ML IV SCH (11:36)
[2018-08-08] MEDS: DILAUDID IV PRN ×2 (12:33→17:15)
--- NOTE | 2018-08-08 14:28 | Progress Note ---
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 Patient complaining of foul odor from the wound and purulent drainage from distal portion of the stump, the wound has imprisoned for 3 months and he became very ill 2 days prior to presentation, was complaining of nausea vomiting and poor appetite malaise Prognosis cellulitis of R LE stump Open wound of scrotum and testes Open wound of right lower leg Hypertension Diabetes moderate malnutrition tobacco abuse and dependence Plan Empiric antibiotics, ID consult, wound care -Counseled about cessation of tobacco, patient states that he has no desire to quit. Offered nicotine patches, he refused optimize insulin dose Optimize meds for chronic conditions General surgery consult appreciated, sp surgical debridement on 08/07 executive community planning consult, advised on balanced diet rich in protein and healthy fats Prophylaxis chemical Tentative dc on Saturday after wound care has been set up, and after ID has given abx plan History Interval history: Patient continues to have drainage from right LE stump, it is much reduced, denies pain, he has no other complaints. Review of systems Constitutional: No fevers, no malaise, no joint pains CVS: No chest pain, no orthopnea, no dyspnea on exertion, no pedal edema GI: No abdominal pain, no diarrhea, no vomiting, no constipation Respiratory: No shortness of breath, no wheezing, no coughing Hospitalist Physical - Physical exam Narrative exam: General.: Appears well, no distress, nontoxic HEENT: Moist mucous membranes, extraocular muscles intact, no lymphadenopathy Neck: supple Cardiac: S1-S2 heard Lungs: clear to auscultation bilaterally Abdomen: soft , nontender, nondistended, bowel sounds positive Extremities/skin; Multiple wounds are seen in the RLE stump site, medial aspect of the right thigh, and scrotum Neurologic: no gross focal deficits Psych: calm, and cooperative - Constitutional Vitals: Temp Pulse Resp BP Pulse Ox 97.7 F 68 20 117/75 97 08/08/18 05:52 08/08/18 09:06 08/08/18 12:33 08/08/18 05:52 08/08/18 05:52 Results - Labs CBC & Chem 7: 08/06/18 05:15 08/06/18 05:15 Labs: Laboratory Last Values WBC 7.9 K/mm3 (4.5-11.0) 08/06/18 05:15 RBC 4.63 M/mm3 (3.65-5.03) 08/06/18 05:15 Hgb 13.1 gm/dl (11.8-15.2) 08/06/18 05:15 Hct 39.8 % (35.5-45.6) D 08/06/18 05:15 MCV 86 fl (84-94) 08/06/18 05:15 MCH 28 pg (28-32) 08/06/18 05:15 MCHC 33 % (32-34) 08/06/18 05:15 RDW 15.4 % (13.2-15.2) H 08/06/18 05:15 Plt Count 192 K/mm3 (140-440) 08/06/18 05:15 Lymph % (Auto) 24.9 % (13.4-35.0) 08/06/18 05:15 [place] % (Auto) 11.2 % (0.0-7.3) H 08/06/18 05:15 Eos % (Auto) 1.5 % (0.0-4.3) 08/06/18 05:15 Baso % (Auto) 0.8 % (0.0-1.8) 08/06/18 05:15 Lymph # 2.0 K/mm3 (1.2-5.4) 08/06/18 05:15 [place] # 0.9 K/mm3 (0.0-0.8) H 08/06/18 05:15 Eos # 0.1 K/mm3 (0.0-0.4) 08/06/18 05:15 Baso # 0.1 K/mm3 (0.0-0.1) 08/06/18 05:15 Seg Neutrophils % 61.6 % (40.0-70.0) 08/06/18 05:15 Seg Neutrophils # 4.9 K/mm3 (1.8-7.7) 08/06/18 05:15 Sodium 134 mmol/L (137-145) L 08/06/18 05:15 Potassium 4.5 mmol/L (3.6-5.0) 08/06/18 05:15 Chloride 101.3 mmol/L (98-107) 08/06/18 05:15 Carbon Dioxide 18 mmol/L (22-30) L 08/06/18 05:15 Anion Gap 19 mmol/L 08/06/18 05:15 BUN 26 mg/dL (9-20) H 08/06/18 05:15 Creatinine 1.2 mg/dL (0.8-1.5) 08/06/18 05:15 Estimated GFR > 60 ml/min 08/06/18 05:15 BUN/Creatinine Ratio 22 % 08/06/18 05:15 Glucose 365 mg/dL (75-100) H 08/06/18 05:15 POC Glucose 217 (70-105) H 08/08/18 11:26 Hemoglobin A1c 14.2 % (4-6) H 08/05/18 22:43 Calcium 9.4 mg/dL (8.4-10.2) 08/06/18 05:15 Total Bilirubin 0.20 mg/dL (0.1-1.2) 08/06/18 05:15 AST 9 units/L (5-40) 08/06/18 05:15 ALT 7 units/L (7-56) 08/06/18 05:15 Alkaline Phosphatase 111 units/L (35-129) 08/06/18 05:15 Total Protein 7.5 g/dL (6.3-8.2) D 08/06/18 05:15 Albumin 2.9 g/dL (3.9-5) L 08/06/18 05:15 Albumin/Globulin Ratio 0.6 % 08/06/18 05:15 Vancomycin Trough 19.7 ug/mL (5.0-20.0) 08/08/18 10:28 Nutrition/Malnutrition Assess - Dietary Evaluation Nutrition/Malnutrition Findings: Nutrition Notes Start: 08/06/18 12:52 Freq: Status: Active Protocol: Document 08/06/18 12:52 LM (Rec: 08/06/18 13:39 LM [id number]) Co-Sign 08/06/18 12:52 LP Nutrition Notes 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 Pt did not appear to be 69.5 kg Subjective/Other Information Consult for skin risk. Kolby score is 16. Pt stated his appetite has not been good [employer] FARM[employer] . Pt said he ate a couple bites of his breakfast. Pt stated he has no problems chewing or swallowing. Pt said he does not monitor DM at home. Discussed DM with pt. Burn Absent Trauma Absent #2 Nutrition Diagnosis Food and nutrition-related knowledge deficit Etiology DM As Evidenced by Signs and Symptoms Hgb A1C 14.2, BG 365 #1 Nutrition Diagnosis Increased nutrient needs ( specify in comment below) Comments: Protein Etiology Wound healing As Evidenced by Signs and Symptoms thigh and stump wound Is patient on ventilator? No Is Patient Ambulatory and/or Out of Bed No REE-(Bozman-St. Jeor-confined to bed) 9144.128 Calculation Used for Recommendations [facility] Additional Notes Protein: 87-104 (1.25-1.5 g/kg ) Fluids: 1 mL/kcal Nutrition Intervention Change Diet Order: Continue consitent CHO Add Supplement/Snack (indicate name/kcal Breezy BID /protein ) Provides kCal: 190 Provides Protein (gm) 5 Teaching Recipient Patient Learning Readiness Fair Teaching Methods Discussion Handout Response to Teaching Verbalize understanding Education Handouts Provided CHO counting for DM Barriers to Learning Motivation RD phone number provided Yes Patient aware of follow up options Yes Goal #1 Meet at least 75% of energy and protein needs Goal #2 Wound healing Anticipated Discharge Needs: Consitent CHO Follow-Up By: 08/11/18 Additional Comments F/U for intakes, need for ONS, weight
--- NOTE | 2018-08-08 15:49 | Progress Note ---
Assessment and Plan - Patient Problems (1) Open wound of right thigh Current Visit: Yes Status: Acute Qualifiers: Encounter type: initial encounter Qualified Code(s): S71.101A - Unspecified open wound, right thigh, initial encounter Plan to address problem: pt stable. s/p wound debridement - 08/07/18 - POD#1. No evidence of infection at time of debridement. This was simply very poorly kept wounds with a weak scab- like covering. Pt simply needs good wound care. Can be done at the wound care center. Pt may be d/c'd anytime from surgical perspective. f/u in wound care clinic please call with questions. Subjective Date of service: 08/08/18 Patient Reports: Positive: no new complaints, feels better Objective Vital Signs - 12hr 08/08/18 08/08/18 08/08/18 05:52 09:06 12:33 Temperature 97.7 F Pulse Rate 68 68 Respiratory 18 20 Rate Blood Pressure 117/75 O2 Sat by Pulse 97 Oximetry - General physical appearance no distress, no pain, other (good spirits) - Respiratory normal expansion, normal respiratory effort - Musculoskeletal other (dressings dry) - Psychiatric oriented to time, oriented to person, oriented to place, speech is normal, memory intact - Labs 08/06/18 05:15 08/06/18 05:15
[2018-08-08] MEDS ORDERED: AMBIEN PO ONE (22:00)
[2018-08-08] MEDS: LANTUS SUB-Q SCH (23:29)
[2018-08-08] MEDS: PERCOCET 5/325 PO PRN (23:30)
[2018-08-08] MEDS: LOVENOX SUB-Q SCH (23:30)
[2018-08-08] MEDS: VANCOMYCIN/NS 1 GM/250 ML 1 GM/250 ML BAG IV SCH (23:32)
[2018-08-09] MEDS: UNASYN/NS 3 GM/100 ML 3 GM/100 ML BAG IV SCH ×4 (01:05→17:49)
[2018-08-09 08:02] LABS: BUN/Creatinine Ratio 10; Blood Urea Nitrogen 10 mg/dL (9-20); Calcium 8.9 mg/dL (8.4-10.2); Hemolysis Index 3
[2018-08-09] MEDS: HumaLOG SUB-Q SCH ×7 (08:42→23:05)
[2018-08-09] MEDS: PEPCID PO SCH ×2 (10:45→22:26)
[2018-08-09] MEDS: GLUCOPHAGE PO SCH ×2 (10:45→22:27)
[2018-08-09] MEDS: ZESTRIL PO SCH (10:45)
[2018-08-09] MEDS: SODIUM CHLORIDE FLUSH SYRINGE 10 ML IV SCH ×2 (10:47→22:26)
[2018-08-09] MEDS: VANCOMYCIN/NS 1 GM/250 ML 1 GM/250 ML BAG IV SCH ×2 (11:39→22:26)
[2018-08-09] MEDS: PERCOCET 5/325 PO PRN (11:45)
--- NOTE | 2018-08-09 16:56 | Progress Note ---
Assessment and Plan - Patient Problems (1) Infection of amputation stump Current Visit: Yes Status: Acute Plan to address problem: Agent with infected stump site with cellulitis now looks excellent status post debridement does not appear to be infected at this time. Currently on vancomycin will continue vancomycin. Blood cultures show no growth. Patient had several open areas or groin scrotum testes minimal bleeding. Continue local wound care as well. (2) Insulin dependent diabetes mellitus Current Visit: Yes Status: Acute Plan to address problem: Patient diabetes has fair control. No new changes continue insulin as ordered. Patient to be discharged on Saturday with wound clinic follow-up. History Interval history: Patient upbeat and out of bed. Pain is well controlled. Discussed about lower extremity cellulitis. Has resolved. Patient status post debridement pain control plan to discharge on Saturday with wound care and antibiotics. Hospitalist Physical - Constitutional Vitals: Temp Pulse Resp BP Pulse Ox 97.4 F L 68 18 137/70 96 08/09/18 11:28 08/09/18 11:28 08/09/18 11:28 08/09/18 11:28 08/09/18 11:28 General appearance: Present: no acute distress - EENT Eyes: Present: PERRL, EOM intact ENT: hearing intact, clear oral mucosa, dentition normal - Neck Neck: Present: supple, normal ROM - Respiratory Respiratory effort: normal Respiratory: bilateral: CTA - Cardiovascular Rhythm: regular Heart Sounds: Present: S1 & S2 - Extremities Extremities: no ischemia, pulses intact, pulses symmetrical, normal temperature Extremity abnormal: other (some edema around polyp. Arava debridement looks good. Still some serosanguineous drainage) Peripheral Pulses: abnormal - Abdominal General gastrointestinal: soft, non-tender, non-distended, normal bowel sounds - Integumentary Integumentary: Present: clear - Psychiatric Psychiatric: appropriate mood/affect, cooperative - Neurologic Neurologic: CNII-XII intact Results - Labs CBC & Chem 7: 08/06/18 05:15 08/09/18 07:30 Labs: Laboratory Last Values WBC 7.9 K/mm3 (4.5-11.0) 08/06/18 05:15 RBC 4.63 M/mm3 (3.65-5.03) 08/06/18 05:15 Hgb 13.1 gm/dl (11.8-15.2) 08/06/18 05:15 Hct 39.8 % (35.5-45.6) D 08/06/18 05:15 MCV 86 fl (84-94) 08/06/18 05:15 MCH 28 pg (28-32) 08/06/18 05:15 MCHC 33 % (32-34) 08/06/18 05:15 RDW 15.4 % (13.2-15.2) H 08/06/18 05:15 Plt Count 192 K/mm3 (140-440) 08/06/18 05:15 Lymph % (Auto) 24.9 % (13.4-35.0) 08/06/18 05:15 [place] % (Auto) 11.2 % (0.0-7.3) H 08/06/18 05:15 Eos % (Auto) 1.5 % (0.0-4.3) 08/06/18 05:15 Baso % (Auto) 0.8 % (0.0-1.8) 08/06/18 05:15 Lymph # 2.0 K/mm3 (1.2-5.4) 08/06/18 05:15 [place] # 0.9 K/mm3 (0.0-0.8) H 08/06/18 05:15 Eos # 0.1 K/mm3 (0.0-0.4) 08/06/18 05:15 Baso # 0.1 K/mm3 (0.0-0.1) 08/06/18 05:15 Seg Neutrophils % 61.6 % (40.0-70.0) 08/06/18 05:15 Seg Neutrophils # 4.9 K/mm3 (1.8-7.7) 08/06/18 05:15 Sodium 139 mmol/L (137-145) 08/09/18 07:30 Potassium 4.2 mmol/L (3.6-5.0) 08/09/18 07:30 Chloride 107.4 mmol/L (98-107) H 08/09/18 07:30 Carbon Dioxide 21 mmol/L (22-30) L 08/09/18 07:30 Anion Gap 15 mmol/L 08/09/18 07:30 BUN 10 mg/dL (9-20) 08/09/18 07:30 Creatinine 1.0 mg/dL (0.8-1.5) 08/09/18 07:30 Estimated GFR > 60 ml/min 08/09/18 07:30 BUN/Creatinine Ratio 10 % 08/09/18 07:30 Glucose 202 mg/dL (75-100) H 08/09/18 07:30 POC Glucose 109 (70-105) H 08/09/18 11:10 Hemoglobin A1c 14.2 % (4-6) H 08/05/18 22:43 Calcium 8.9 mg/dL (8.4-10.2) 08/09/18 07:30 Total Bilirubin 0.20 mg/dL (0.1-1.2) 08/06/18 05:15 AST 9 units/L (5-40) 08/06/18 05:15 ALT 7 units/L (7-56) 08/06/18 05:15 Alkaline Phosphatase 111 units/L (35-129) 08/06/18 05:15 Total Protein 7.5 g/dL (6.3-8.2) D 08/06/18 05:15 Albumin 2.9 g/dL (3.9-5) L 08/06/18 05:15 Albumin/Globulin Ratio 0.6 % 08/06/18 05:15 Vancomycin Trough 19.7 ug/mL (5.0-20.0) 08/08/18 10:28 Nutrition/Malnutrition Assess - Dietary Evaluation Nutrition/Malnutrition Findings: Nutrition Notes Start: 08/06/18 12:52 Freq: Status: Active Protocol: Document 08/09/18 12:17 DAVIDE (Rec: 08/09/18 12:19 DAVIDE [email or web address] [email or web address]) Nutrition Notes Need for Assessment generated from: MD Order Initial or Follow up Brief Note Subjective/Other Information RD consulted for malnutrition. Pt assessed on 08/06/18, educated on CHO-controlled diet, prescribed ONS for wound healing and is being followed for intakes and need for further nutrition supplementation. Nutrition Intervention Follow-Up By: 08/12/18 Additional Comments F/U: intakes, need for additional ONS
[2018-08-09] MEDS: LOVENOX SUB-Q SCH (22:28)
[2018-08-09] MEDS: LANTUS SUB-Q SCH (23:07)
[2018-08-10] MEDS: UNASYN/NS 3 GM/100 ML 3 GM/100 ML BAG IV SCH ×4 (00:36→18:10)
--- NOTE | 2018-08-10 07:23 | Progress Note ---
Assessment and Plan Assessment and plan: - Patient Problems (1) Infection of amputation stump Current Visit: Yes Status: Acute Plan to address problem: Agent with infected stump site with cellulitis now looks excellent status post debridement does not appear to be infected at this time. Currently on vancomycin will continue vancomycin. Blood cultures show no growth. Patient had several open areas or groin scrotum testes minimal bleeding. Continue local wound care as well. Better wound care advised. Follow up at the wound care clinic. Will not need further antibiotics on discharge. (2) Insulin dependent diabetes mellitus Current Visit: Yes Status: Acute Plan to address problem: Patient diabetes has fair control. No new changes continue insulin as ordered. Patient to be discharged on Saturday with wound clinic follow-up. History Interval history: Patient seen and examined today, no new complaints. Hospitalist Physical - Physical exam Narrative exam: General appearance: Present: no acute distress - EENT Eyes: Present: PERRL, EOM intact ENT: hearing intact, clear oral mucosa, dentition normal - Neck Neck: Present: supple, normal ROM - Respiratory Respiratory effort: normal Respiratory: bilateral: CTA - Cardiovascular Rhythm: regular Heart Sounds: Present: S1 & S2 - Extremities Extremities: no ischemia, pulses intact, pulses symmetrical, normal temperature, RIGHT bKA Extremity abnormal: other (some edema around polyp. Arava debridement looks good. Still some serosanguineous drainage) Peripheral Pulses: abnormal - Abdominal General gastrointestinal: soft, non-tender, non-distended, normal bowel sounds - Integumentary Integumentary: Present: multiple cellultic changes to groing with some excuration, non draining at this time. - Psychiatric Psychiatric: appropriate mood/affect, cooperative - Neurologic Neurologic: CNII-XII intact - Constitutional Vitals: Temp Pulse Resp BP Pulse Ox 98.4 F 70 20 123/73 100 08/10/18 04:46 08/10/18 04:46 08/10/18 04:46 08/10/18 04:46 08/10/18 04:46 General appearance: Present: no acute distress Results - Labs CBC & Chem 7: 08/06/18 05:15 08/09/18 07:30 Labs: Laboratory Last Values WBC 7.9 K/mm3 (4.5-11.0) 08/06/18 05:15 RBC 4.63 M/mm3 (3.65-5.03) 08/06/18 05:15 Hgb 13.1 gm/dl (11.8-15.2) 08/06/18 05:15 Hct 39.8 % (35.5-45.6) D 08/06/18 05:15 MCV 86 fl (84-94) 08/06/18 05:15 MCH 28 pg (28-32) 08/06/18 05:15 MCHC 33 % (32-34) 08/06/18 05:15 RDW 15.4 % (13.2-15.2) H 08/06/18 05:15 Plt Count 192 K/mm3 (140-440) 08/06/18 05:15 Lymph % (Auto) 24.9 % (13.4-35.0) 08/06/18 05:15 [place] % (Auto) 11.2 % (0.0-7.3) H 08/06/18 05:15 Eos % (Auto) 1.5 % (0.0-4.3) 08/06/18 05:15 Baso % (Auto) 0.8 % (0.0-1.8) 08/06/18 05:15 Lymph # 2.0 K/mm3 (1.2-5.4) 08/06/18 05:15 [place] # 0.9 K/mm3 (0.0-0.8) H 08/06/18 05:15 Eos # 0.1 K/mm3 (0.0-0.4) 08/06/18 05:15 Baso # 0.1 K/mm3 (0.0-0.1) 08/06/18 05:15 Seg Neutrophils % 61.6 % (40.0-70.0) 08/06/18 05:15 Seg Neutrophils # 4.9 K/mm3 (1.8-7.7) 08/06/18 05:15 Sodium 139 mmol/L (137-145) 08/09/18 07:30 Potassium 4.2 mmol/L (3.6-5.0) 08/09/18 07:30 Chloride 107.4 mmol/L (98-107) H 08/09/18 07:30 Carbon Dioxide 21 mmol/L (22-30) L 08/09/18 07:30 Anion Gap 15 mmol/L 08/09/18 07:30 BUN 10 mg/dL (9-20) 08/09/18 07:30 Creatinine 1.0 mg/dL (0.8-1.5) 08/09/18 07:30 Estimated GFR > 60 ml/min 08/09/18 07:30 BUN/Creatinine Ratio 10 % 08/09/18 07:30 Glucose 202 mg/dL (75-100) H 08/09/18 07:30 POC Glucose 103 (70-105) 08/09/18 20:46 Hemoglobin A1c 14.2 % (4-6) H 08/05/18 22:43 Calcium 8.9 mg/dL (8.4-10.2) 08/09/18 07:30 Total Bilirubin 0.20 mg/dL (0.1-1.2) 08/06/18 05:15 AST 9 units/L (5-40) 08/06/18 05:15 ALT 7 units/L (7-56) 08/06/18 05:15 Alkaline Phosphatase 111 units/L (35-129) 08/06/18 05:15 Total Protein 7.5 g/dL (6.3-8.2) D 08/06/18 05:15 Albumin 2.9 g/dL (3.9-5) L 08/06/18 05:15 Albumin/Globulin Ratio 0.6 % 08/06/18 05:15 Vancomycin Trough 19.7 ug/mL (5.0-20.0) 08/08/18 10:28 Nutrition/Malnutrition Assess - Dietary Evaluation Nutrition/Malnutrition Findings: Nutrition Notes Start: 08/06/18 12:52 Freq: Status: Active Protocol: Document 08/09/18 12:17 DAVIDE (Rec: 08/09/18 12:19 [facility] [id number] [email or web address]) Nutrition Notes Need for Assessment generated from: MD Order Initial or Follow up Brief Note Subjective/Other Information RD consulted for malnutrition. Pt assessed on 08/06/18, educated on CHO-controlled diet, prescribed ONS for wound healing and is being followed for intakes and need for further nutrition supplementation. Nutrition Intervention Follow-Up By: 08/12/18 Additional Comments F/U: intakes, need for additional ONS
[2018-08-10] MEDS: HumaLOG SUB-Q SCH ×7 (08:12→21:40)
[2018-08-10] MEDS: GLUCOPHAGE PO SCH ×2 (11:11→21:31)
[2018-08-10] MEDS: PEPCID PO SCH ×2 (11:11→21:31)
[2018-08-10] MEDS: SODIUM CHLORIDE FLUSH SYRINGE 10 ML IV SCH ×2 (11:12→21:43)
[2018-08-10] MEDS: ZESTRIL PO SCH (11:12)
[2018-08-10] MEDS: VANCOMYCIN/NS 1 GM/250 ML 1 GM/250 ML BAG IV SCH ×2 (11:12→21:27)
[2018-08-10] MEDS: PERCOCET 5/325 PO PRN (15:35)
[2018-08-10] MEDS: NACL 0.9% 1000 ML 1,000 ML IV SCH (15:38)
--- NOTE | 2018-08-10 15:49 | Consultation ---
History of Present Illness - Reason for Consult Consult date: 08/10/18 cellulitis Requesting physician: SINGH [place] - History of Present Illness 62 y/o male with history of diabetes, gangrene right lower extremity status post [id number] amputation in September 2017, HTN; admitted on 08/05/2018 with multiple painful wounds - right inner / post thigh, right ant stump, scrotum and perineal and left chest. Patient has foul odor coming from wound wound and purulent drainage from the distal portion of the stump. He has had generalized malaise with nausea vomiting and poor appetite. The wound has been present for 3 months. Denies fever. Poorly controlled DM at home. He does not have PCP. In the ED< temp 97.8, HR 107, BP 130/78, R 18, O2 sat 98%. WBC 9.6. Hg 15.2. Plat 238. Creat 1.5. A1C 14. Blood culture 08/05/2018 negative. XR right left no periostial reaction. ROS: General: no fever, no chills, no nightsweats,+ weakness, + anorexia Cutaneous:+multiple wounds Head: no headaches or injury Eyes: no changes in vision, eye pain, double vision Ears: no ear pain, ear discharge, ringing or hearing loss Nose: no nose bleeding, stuffiness Mouth & throat: no bleeding gums, no horseness, no dental problems, or swollen glands Neck: no pain, node enlargement/lumps, tyroid enlargement or tenderness Respiratory: no cough, wheezing, no sputum, hemoptysis, pleuritic chest pain Cardiovascular: no chest pain, leg edema, cyanosis, ZAM[place]A, orthopnea Musculoskeletal: no decreased joint motion, no left leg tenderness, no swelling Gastrointestinal: no nausea, vomiting, no hematemesis, diarrhea, constipation, Genitourinary/Reproductive: no frequent urination, no dysuria, hematuria, incontinence Neurogical: no seizures, no headaches, no weakness, no paresthesias, no loss of speech or vision Psychiatric: stable mood; no excessive anxiety, sadness or moodiness Past History Past Medical History: diabetes, hypertension Past Surgical History: Other (RLE amputation in 10/06) Social history: smoking, alcohol abuse. denies: prescription drug abuse, IV drug use Family history: no significant family history Medications and Allergies Allergies Allergy/AdvReac Type Severity Reaction Status Date / Time No Known Allergies Allergy Unverified 08/05/18 14:15 Home Medications Medication Instructions Recorded Confirmed Last Taken Type AtorvaSTATin [Lipitor] 40 mg PO QHS 08/05/18 08/05/18 Unknown History Humalog 100 UNITS/ML Kwikpen 50 units SQ TID 08/05/18 08/05/18 Unknown History Insulin Detemir [Levemir] 70 unit SQ HS 08/05/18 08/05/18 Unknown History Lisinopril [Zestril TAB] 40 mg PO QDAY 08/05/18 08/05/18 Unknown History Metformin HCl 500 mg PO BID 08/05/18 08/05/18 Unknown History Active Meds: Active Medications Acetaminophen (Tylenol) 650 mg PO Q4H PRN PRN Reason: Pain MILD(1-3)/Fever >100.5/SY Atorvastatin Calcium (Lipitor) 40 mg PO QHS [facility] Last Admin: 08/09/18 22:26 Dose: 40 mg Documented by: Enoxaparin Sodium (Lovenox) 40 mg SUB-Q QDAY@2200 [facility] Last Admin: 08/09/18 22:28 Dose: 40 mg Documented by: Famotidine (Pepcid) 20 mg PO BID [facility] Last Admin: 08/10/18 11:11 Dose: 20 mg Documented by: Hydromorphone HCl (Dilaudid) 0.5 mg IV Q3H PRN PRN Reason: Pain , Severe (7-10) Last Admin: 08/08/18 17:15 Dose: 0.5 mg Documented by: Ampicillin Sodium/Sulbactam Sodium (Unasyn/Ns 3 Gm/100 Ml) 3 gm in 100 mls @ 100 mls/hr IV Q6HR [facility]; Protocol Last Admin: 08/10/18 13:05 Dose: 100 mls/hr Documented by: Sodium Chloride (Nacl 0.9% 1000 Ml) 1,000 mls @ 75 mls/hr IV DIRECT [facility] Last Admin: 08/10/18 15:38 Dose: 75 mls/hr Documented by: Vancomycin HCl (Vancomycin/Ns 1 Gm/250 Ml) 1 gm in 250 mls @ 167.007 mls/hr IV Q12HR [facility] Last Admin: 08/10/18 11:12 Dose: 167.007 mls/hr Documented by: Insulin Glargine (Lantus) 50 units SUB-Q QHS [facility] Last Admin: 08/09/18 23:07 Dose: Not Given Documented by: Insulin Human Lispro (Humalog) 0 unit SUB-Q ACHS [facility]; Protocol Last Admin: 08/10/18 13:07 Dose: Not Given Documented by: Insulin Human Lispro (Humalog) 16 unit SUB-Q AC [facility] Last Admin: 08/10/18 13:07 Dose: 16 unit Documented by: Lisinopril (Zestril) 40 mg PO QDAY [facility] Last Admin: 08/10/18 11:12 Dose: 40 mg Documented by: Metformin HCl (Glucophage) 500 mg PO BID [facility] Last Admin: 08/10/18 11:11 Dose: 500 mg Documented by: Metoclopramide HCl (Reglan) 10 mg IV Q6H PRN PRN Reason: Nausea And Vomiting Ondansetron HCl (Zofran) 4 mg IV Q8H PRN PRN Reason: Nausea And Vomiting Oxycodone/Acetaminophen (Percocet 5/325) 1 tab PO Q6H PRN PRN Reason: Pain, Moderate (4-6) Last Admin: 08/10/18 15:35 Dose: 1 tab Documented by: Sodium Chloride (Sodium Chloride Flush Syringe 10 Ml) 10 ml IV BID [facility] Last Admin: 08/10/18 11:12 Dose: 10 ml Documented by: Sodium Chloride (Sodium Chloride Flush Syringe 10 Ml) 10 ml IV PRN PRN PRN Reason: LINE FLUSH Physical Examination - Physical Exam Narrative exam: Constitutional: Alert, cooperative. in NAD Head, Ears, Nose: Normocephalic, atraumatic. External ears, nose normal Eyes: Conjunctivae/corneas clear. No icterus. No ptosis. Neck: Supple, no meningeal signs Oral: dentition poor no thrush Cardiovascular: RRR Respiratory: CTAB GI: Soft, non-tender; bowel sounds normal Musculoskeletal: +right BKA with ant stump ulcer clean no discharge, post stump wound inner thigh tenderness and indurataion, +scrotal skin sloughing and perineal sloughing no purulence Skin: No rash or abscess. Hem/Lymphatic: No palpable cervical or supraclavicular nodes. No lymphangitis Psych: Mood ok. Affect normal Neurological: Awake, alert, oriented. - Constitutional Vitals: Vital Signs Temp Pulse Resp BP Pulse Ox 97.7 F 64 20 151/80 97 08/10/18 12:21 08/10/18 12:21 08/10/18 12:21 08/10/18 12:21 08/10/18 12:21 Temperature -Last 24 Hours Temperature 97.7 F Temperature 98.4 F Temperature 98.2 F Temperature 97.8 F Results - Labs CBC & Chem 7: 08/06/18 05:15 08/09/18 07:30 Labs: Abnormal lab results 08/09/18 08/10/18 08/10/18 Range/Units 16:41 07:33 11:23 POC Glucose 106 H 124 H 131 H (70-105) Assessment and Plan Cultures: 08/05/2018 blood culture neg A/P: 62 y/o male with history of diabetes, gangrene right lower extremity status post [id number] amputation in September 2017, HTN; admitted on 08/05/2018 with multiple painful wounds - right inner / post thigh, right ant stump, scrotum and perineal and left chest: Multiple right thigh, scrotal and left chest wounds with cellulitis: all wound initially with thick crust and purulence, s/p OR debriement 06/07 finding no infection. Patient has foul odor coming from wound wound and purulent drainage from the distal portion of the stump. Blood culture 08/05/2018 negative. XR right left no periostial reaction. Poorly controlled DM at home.A1C 14. Recs: continue unasyn and vancomcyin check MRSA PCR screening continue wound care PO antibiotics to go home MD Deborah [facility] C: [phone] O: [phone] F: [phone]
[2018-08-10] MEDS: LOVENOX SUB-Q SCH (21:32)
[2018-08-10] MEDS: LANTUS SUB-Q SCH (21:42)
[2018-08-11] MEDS: UNASYN/NS 3 GM/100 ML 3 GM/100 ML BAG IV SCH ×2 (00:29→05:27)
[2018-08-11] MEDS: DILAUDID IV PRN (00:47)
[2018-08-11] MEDS: HumaLOG SUB-Q SCH ×4 (09:23→13:31)
[2018-08-11 10:06] VITALS: BP 139/87
--- NOTE | 2018-08-11 10:11 | Progress Note ---
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 Patient has foul odor coming from wound wound and purulent drainage from the distal portion of the stump. Blood culture 08/05/2018 negative. XR right left no periostial reaction. Poorly controlled DM at home.A1C 14. Recs: continue unasyn and vancomcyin check MRSA PCR screening continue wound care Can discharge home on Keflex 500 mg, PO QID and Doxycycline 100mg, PO BID for 7 days. Gena Coley NP [facility] M: [phone] O:[phone] Subjective Date of service: 08/11/18 Interval history: Patient seen and examined. Denied pain, sob, rashes or fever. Stated that he was ready to be discharged home. Nurses notes, labs, reports reviewed, discussed with patient. Objective - Exam Narrative Exam: Constitutional: Alert, cooperative. in NAD Head, Ears, Nose: Normocephalic, atraumatic. External ears, nose normal Eyes: Conjunctivae/corneas clear. No icterus. No ptosis. Neck: Supple, no meningeal signs Oral: dentition poor no thrush Cardiovascular: RRR Respiratory: CTAB GI: Soft, non-tender; bowel sounds normal Musculoskeletal: +right BKA with ant stump ulcer clean no discharge, post stump wound inner thigh tenderness and indurataion, +scrotal skin sloughing and perineal sloughing ,no drainage observed Skin: No rash or abscess. Hem/Lymphatic: No palpable cervical or supraclavicular nodes. No lymphangitis Psych: Mood ok. Affect normal Neurological: Awake, alert, oriented. - Constitutional Vitals: Vital Signs Temp Pulse Resp BP Pulse Ox 98.0 F 63 20 139/87 98 08/11/18 04:30 08/11/18 04:30 08/11/18 04:30 08/11/18 04:30 08/11/18 04:30 Temperature -Last 24 Hours Temperature 98.0 F Temperature 98.2 F Temperature 98.1 F Temperature 97.7 F - Labs CBC & Chem 7: 08/06/18 05:15 08/09/18 07:30 Labs: Abnormal lab results 08/10/18 08/10/18 Range/Units 11:23 16:03 POC Glucose 131 H 118 H (70-105)
[2018-08-11] MEDS: GLUCOPHAGE PO SCH (10:29)
[2018-08-11] MEDS: SODIUM CHLORIDE FLUSH SYRINGE 10 ML IV SCH (10:29)
[2018-08-11] MEDS: PEPCID PO SCH (10:29)
[2018-08-11] MEDS: VANCOMYCIN/NS 1 GM/250 ML 1 GM/250 ML BAG IV SCH (10:30)
[2018-08-11] MEDS: ZESTRIL PO SCH (10:31)
--- NOTE | 2018-08-11 11:10 | Discharge Summary ---
Providers - Providers Date of Admission: 08/05/18 16:45 Attending physician: ISAURA LOYD MD 08/05/18 Consult to Case Management [CONS] Routine Services Needed at Discharge: Home Health Services Tuberculosis Specialist Notified:: cm 08/05/18 22:29 Consult to Wound/ET Nurse [CONS] Routine Reason For Exam: wound eval 08/06/18 07:49 Consult to Physician [CONS] Routine Comment: Consulting Provider: ALEE ARAMBULA Physician Instructions: Reason For Exam: RLE Wound 08/08/18 17:08 Consult to Physician [CONS] Routine Comment: Consulting Provider: KACIE PINA Physician Instructions: Reason For Exam: cellulitis 08/08/18 17:11 Consult to Dietitian/Nutrition [CONS] Routine Physician Instructions: Reason For Exam: Reason for Consult: Malnutrition Primary care physician: CASSIDY REZA Hospitalization Reason for admission: cellultis Condition: Stable Hospital course: 62 year-old man past medical history of hypertension diabetes gangrene right lower extremity status post BKA in September 2017 reasons with infected stump and infected posterior thigh wound. Patient complaining of foul odor from the wound and purulent drainage from distal portion of the stump, the wound has imprisoned for 3 months and he became very ill 2 days prior to presentation, was complaining of nausea vomiting and poor appetite malaise. Patient underwent a debridement on 08/07 and also Counseled about cessation of tobacco, patient states that he has no desire to quit. Offered nicotine patches, he refused. the importance of this to healing was discussed but he did not accept. he was placed on abx with vancomycin and unasyn with ID evaluation done and recommended outpatient oral abx. We also recommended that the patient follow with wound care on discharge. Can discharge home on Keflex 500 mg, P0 QID and Doxycycline 100mg, PO BID for 7 days. per ID Discharge Diagnosis cellulitis of R LE stump Sepsis s/p Bedside debredment Open wound of scrotum and testes Open wound of right lower leg Right lower ext BKA Hypertension Uncontrolled Diabetes Mellitus moderate malnutrition tobacco abuse and dependence Disposition: DC/TX-06 HOME UNDER HOME HLTH Time spent for discharge: 35 mins Core Measure Documentation - Palliative Care Palliative Care/ Comfort Measures: Not Applicable - Core Measures Any of the following diagnoses?: none Exam - Physical Exam Narrative exam: General appearance: Present: no acute distress - EENT Eyes: Present: PERRL, EOM intact ENT: hearing intact, clear oral mucosa, dentition normal - Neck Neck: Present: supple, normal ROM - Respiratory Respiratory effort: normal Respiratory: bilateral: CTA - Cardiovascular Rhythm: regular Heart Sounds: Present: S1 & S2 - Extremities Extremities: no ischemia, pulses intact, pulses symmetrical, normal temperature, RIGHT bKA Extremity abnormal: other (some edema around polyp. debridement looks good. ) Peripheral Pulses: abnormal - Abdominal General gastrointestinal: soft, non-tender, non-distended, normal bowel sounds - Integumentary Integumentary: Present: multiple cellultic changes to groing with some excuration, non draining at this time. - Psychiatric Psychiatric: appropriate mood/affect, cooperative - Neurologic Neurologic: CNII-XII intact - Constitutional Vitals: Temp Pulse Resp BP Pulse Ox 98.0 F 63 20 139/87 98 08/11/18 04:30 08/11/18 10:31 08/11/18 04:30 08/11/18 10:31 08/11/18 04:30 Plan Activity: advance as tolerated, fall precautions Diet: diabetic Wound: per your surgeon's advice, per wound nurse instructions, other (follow up at the woundcare clinic) Special Instructions: record daily weights, record daily BP diary, record blood sugar diary, home health RN Follow up with: CASSIDY REZA MD [Primary Care Provider] - 7 Days Prescriptions: cephALEXin [Keflex] 500 mg PO Q8HR #28 cap Doxycycline Hyclate [Doxycycline Hyclate TAB] 100 mg PO BID #14 tablet
--- NOTE | 2018-08-12 15:13 | Query- Present on Admission ---
Richard Campbell____Ale Date:_08/12/2018 Supervisor Rose Grading/CDS:___Edwige Phone#:___[phone] Exercise your independent professional judgment when responding to this query. Questions asked do not imply a particular answer is desired or expected. We greatly appreciate your clarification on this issue. Clinical Documentation States: 62 y/o male with history of diabetes, gangrene right lower extremity status post [id number] amputation in September 2017, HTN; admitted on 08/05/2018 with multiple painful wounds - right inner / post thigh, right ant stump, scrotum and perineal and left chest: Discharge Diagnosis: "Sepsis." Based on the above clinical scenario and your knowledge of the patient's case please clarify if the diagnosis stated below was present on admission: Diagnosis: ____Sepsis Present on admission : [x ] Yes (Y) [ ] Clinically undeterminable(W) [ ] No(N) Please also document response in your Progress Notes and/or Discharge Summary and indicate if the condition was present on admission. CANDIDAD
== END 2018-08-11 14:45 | disposition home health service (06) | DRG 564 ==
LOC: ED 14:09 → 3A 16:45
PROVIDERS: ADMIT Internal Medicine; ATTEND Internal Medicine
PROC: 0HBKXZZ Excision of Right Lower Leg Skin, External Approach (ICD-10-PCS; principal; 2018-08-07)
PROC: 0VJ8XZZ Inspection of Scrotum and Tunica Vaginalis, External Approach (ICD-10-PCS; 2018-08-07)
PROC: 0H9LXZZ Drainage of Left Lower Leg Skin, External Approach (ICD-10-PCS; 2018-08-07)
DX: T87.89 Other complications of amputation stump (principal); A41.9 Sepsis, unspecified organism; L03.115 Cellulitis of right lower limb; E44.0 Moderate protein-calorie malnutrition; L03.313 Cellulitis of chest wall; E11.9 Type 2 diabetes mellitus without complications; I10 Essential (primary) hypertension; E66.9 Obesity, unspecified; E78.5 Hyperlipidemia, unspecified; S81.802A Unspecified open wound, left lower leg, initial encounter; X58.XXXA Exposure to other specified factors, initial encounter; Y83.5 Amputation of limb(s) as the cause of abnormal reaction of the patient, or of later complication, without mention of misadventure at the time of the procedure; F17.210 Nicotine dependence, cigarettes, uncomplicated; S71.101A Unspecified open wound, right thigh, initial encounter; Z79.4 Long term (current) use of insulin; Z68.29 Body mass index [BMI] 29.0-29.9, adult; Z71.6 Tobacco abuse counseling; Z89.511 Acquired absence of right leg below knee; Z82.49 Family history of ischemic heart disease and other diseases of the circulatory system; Y93.89 Activity, other specified; Y92.098 Other place in other non-institutional residence as the place of occurrence of the external cause; Y99.8 Other external cause status
CPT/HCPCS: 36415; 80048; 80053; 80202; 82962; 83036; 85025; 87040; 93005; 93010; 96365; 96366; 96368; 99406; G0378; A9270-GY; J0295; J1170; J1650; J1815; J2543; J2704; J3010; J3370; J7030; J7040; J7050

== ENCOUNTER 2019-01-15 00:11 | Emergency (ER) | payer MEDICARE ==
[2019-01-15 00:56] LABS: Basophils # (Auto) 0.1 K/mm3 (0.0-0.1); Basophils % (Auto) 0.9 % (0.0-1.8); Eosinophils # (Auto) 0.1 K/mm3 (0.0-0.4); Eosinophils % (Auto) 1.6 % (0.0-4.3); Hematocrit 42.6 % (35.5-45.6); Hemoglobin 14.1 gm/dl (11.8-15.2); Mean Corpuscular HGB Conc 33 % (32-34); Mean Corpuscular Volume 88 fl (84-94); Monocytes # (Auto) 0.6 K/mm3 (0.0-0.8); Monocytes % (Auto) 7.3 % (0.0-7.3); Red Blood Count 4.86 M/mm3 (3.65-5.03); Red Cell Distribution Width 17.4 % (13.2-15.2)
[2019-01-15 01:08] LABS: Platelet Count 219 K/mm3 (140-440)
--- NOTE | 2019-01-15 01:30 | XRay Report ---
PROCEDURE: Chest. TECHNIQUE: Chest radiograph single view. HISTORY: Chest pain. COMPARISONS: None. FINDINGS: The heart and mediastinum appear normal. The lungs are clear and well expanded. There are no pleural effusions. The soft tissues and regional skeleton are unremarkable. IMPRESSION: No evidence of acute disease. This document is electronically signed by Kevon Stallworth MD., January 15 2019 01:28:36 AM ET
[2019-01-15 01:40] LABS: Alanine Aminotransferase 22 units/L (7-56); Albumin 3.6 g/dL (3.9-5); BUN/Creatinine Ratio 16; Blood Urea Nitrogen 22 mg/dL (9-20); Calcium 10.1 mg/dL (8.4-10.2); Hemolysis Index 12
[2019-01-15] MEDS ORDERED: PEPCID IV ONE (02:53)
[2019-01-15] MEDS ORDERED: ALUM-MAG HYDROX-SIMETH 200-200-20MG/5ML PO ONE (02:53)
--- NOTE | 2019-01-15 02:55 | Emergency Department Report ---
ED Chest Pain HPI - General Chief Complaint: Chest Pain Stated Complaint: CHEST PAIN Time Seen by Provider: 01/15/19 01:25 Source: patient, EMS Mode of arrival: Wheelchair Limitations: Physical Limitation - History of Present Illness Initial Comments: 63 y.o with mid chest pain, burning in sensation, no n/v. has had similar symptoms in the past helped with antiacids. no sob. MD Complaint: chest pain Onset/Timin -: days(s) Onset: during rest Pain Location: left chest, right chest Pain Radiation: none Severity: moderate Severity scale (0 -10): 6 Quality: aching Consistency: intermittent Improves With: nothing Worsens With: nothing re: denies: nausea Other Symptoms: denies: cough Treatments Prior to Arrival: none Aspirin use within the Past 7 Days: (0) No - Related Data Home Medications Medication Instructions Recorded Confirmed Last Taken Humalog 100 UNITS/ML Kwikpen 50 units SQ TID 08/05/18 01/22/19 Unknown Insulin Detemir [Levemir VIAL] 70 unit SQ HS 08/05/18 01/22/19 01/21/19 Metformin HCl 500 mg PO BID 08/05/18 01/22/19 01/21/19 Previous Rx's Medication Instructions Recorded Last Taken Type Doxycycline Hyclate [Doxycycline 100 mg PO BID #14 tablet 08/11/18 01/21/19 Rx Hyclate TAB] cephALEXin [Keflex] 500 mg PO Q8HR #28 cap 08/11/18 Unknown Rx Omeprazole 40 mg PO DAILY #30 capsule. 01/15/19 01/21/19 Rx AtorvaSTATin [Lipitor] 40 mg PO QHS tablet 01/22/19 Unknown Rx Insulin Aspart Protam & Aspart 20 unit SQ BID #5 pen 01/22/19 Unknown Rx [NovoLOG Mix 70-30 Flexpen] Insulin Glargine,Hum.rec.anlog 30 unit SQ QHS #5 insuln.pen 01/22/19 Unknown Rx [Lantus Solostar] Lisinopril [Zestril TAB] 40 mg PO QDAY tablet 01/22/19 Unknown Rx Meloxicam [Qmiiz Odt] 15 mg PO QDAY #10 tab.rapdis 01/22/19 Unknown Rx Oxycodone HCl/Acetaminophen 1 each PO Q6HR PRN #12 tablet 01/22/19 Unknown Rx [Percocet 7.5/325 mg] Allergies Allergy/AdvReac Type Severity Reaction Status Date / Time No Known Allergies Allergy Verified 01/21/19 14:46 Heart Score - HEART Score History: Slightly suspicious EKG: Non-specific Age: 45-65 Risk factors: 1-2 risk factors Troponin: < normal limit HEART Score: 3 - Critical Actions Critical Actions: 0-3 pts:0.9-1.7%risk of adverse cardiac event.Candidate for discharge ED Review of Systems ROS: Stated complaint: CHEST PAIN Other details as noted in HPI Comment: All other systems reviewed and negative Eyes: denies: eye pain ENT: denies: ear pain Respiratory: denies: cough Cardiovascular: chest pain ED Past Medical Hx - Past Medical History Previous Medical History?: Yes Hx Hypertension: Yes Hx Diabetes: Yes Hx Renal Disease: No Additional medical history: AMPUTATEE gangrene - Surgical History Hx Pacemaker: No Additional Surgical History: RIGHT LEG - Social History Smoking Status: Current Every Day Smoker Substance Use Type: Alcohol - Medications Home Medications: Home Medications Medication Instructions Recorded Confirmed Last Taken Type Humalog 100 UNITS/ML Kwikpen 50 units SQ TID 08/05/18 01/22/19 Unknown History Insulin Detemir [Levemir VIAL] 70 unit SQ HS 08/05/18 01/22/19 01/21/19 History Metformin HCl 500 mg PO BID 08/05/18 01/22/19 01/21/19 History Doxycycline Hyclate [Doxycycline 100 mg PO BID #14 tablet 08/11/18 01/22/19 01/21/19 Rx Hyclate TAB] cephALEXin [Keflex] 500 mg PO Q8HR #28 cap 08/11/18 01/22/19 Unknown Rx Omeprazole 40 mg PO DAILY #30 capsule. 01/15/19 01/22/19 01/21/19 Rx AtorvaSTATin [Lipitor] 40 mg PO QHS tablet 01/22/19 Unknown Rx Insulin Aspart Protam & Aspart 20 unit SQ BID #5 pen 01/22/19 Unknown Rx [NovoLOG Mix 70-30 Flexpen] Insulin Glargine,Hum.rec.anlog 30 unit SQ QHS #5 insuln.pen 01/22/19 Unknown Rx [Lantus Solostar] Lisinopril [Zestril TAB] 40 mg PO QDAY tablet 01/22/19 Unknown Rx Meloxicam [Qmiiz Odt] 15 mg PO QDAY #10 tab.rapdis 01/22/19 Unknown Rx Oxycodone HCl/Acetaminophen 1 each PO Q6HR PRN #12 tablet 01/22/19 Unknown Rx [Percocet 7.5/325 mg] ED Physical Exam - General Limitations: Physical Limitation General appearance: alert, in no apparent distress - Head Head exam: Present: atraumatic, normocephalic - Eye Eye exam: Present: normal appearance, PERRL, EOMI - ENT ENT exam: Present: normal exam, normal orophraynx - Neck Neck exam: Present: normal inspection - Respiratory Respiratory exam: Present: normal lung sounds bilaterally - Cardiovascular Cardiovascular Exam: Present: regular rate, normal rhythm - GI/Abdominal GI/Abdominal exam: Present: soft, normal bowel sounds - Neurological Exam Neurological exam: Present: alert, oriented X3 - Psychiatric Psychiatric exam: Present: normal affect ED Course Vital Signs 01/15/19 01/15/19 01/15/19 00:30 01:30 01:44 Temperature 97.8 F 97.9 F Pulse Rate 81 78 78 Respiratory 18 24 16 Rate Blood Pressure 135/62 132/79 Blood Pressure 132/79 [Left] O2 Sat by Pulse 97 97 Oximetry 01/15/19 01/15/19 01/15/19 02:00 02:30 03:00 Temperature Pulse Rate 79 78 81 Respiratory 22 10 L 13 Rate Blood Pressure 115/61 124/70 Blood Pressure [Left] O2 Sat by Pulse 98 99 99 Oximetry 01/15/19 03:31 Temperature Pulse Rate 88 Respiratory 17 Rate Blood Pressure 128/72 Blood Pressure [Left] O2 Sat by Pulse 98 Oximetry BEST score - Best Score Age > 65: (0) No Aspirin use within the Past 7 Days: (0) No 3 or more CAD Risk Factors: (1) Yes 2 or more Angina events in past 24 hrs: (0) No Known CAD with more than 50% Stenosis: (0) No Elevated Cardiac Markers: (0) No ST Deviation Greater than 0.5mm: (0) No BEST Score: 1 ED Medical Decision Making - Lab Data Result diagrams: 01/15/19 00:34 01/15/19 00:37 Critical care attestation.: If time is entered above; I have spent that time in minutes in the direct care of this critically ill patient, excluding procedure time. ED Disposition Clinical Impression: Chest pain in adult Disposition: DC-01 TO HOME OR SELFCARE Is pt being admited?: No Does the pt Need Aspirin: No Condition: Stable Instructions: Chest Pain (ED) Prescriptions: Omeprazole 40 mg PO DAILY #30 capsule.dr Referrals: CASSIDY REZA MD [Primary Care Provider] - 3-5 Days
[2019-01-15 03:43] VITALS: BP 128/72
== END 2019-01-15 04:15 | disposition home or self-care (01) ==
LOC: ED 00:11
DX: R07.89 Other chest pain (principal); I10 Essential (primary) hypertension; E11.9 Type 2 diabetes mellitus without complications; F17.200 Nicotine dependence, unspecified, uncomplicated; Z79.4 Long term (current) use of insulin; Z79.899 Other long term (current) drug therapy
CPT/HCPCS: 36415; 71045; 80053; 84484; 85025; 93005; 93010; 96374; 99284; G0480; 80320

== ENCOUNTER 2019-01-21 14:27 | Inpatient (IN) | payer MEDICARE ==
[~2019-01-21 14:27] MED LIST: SODIUM CHLORIDE FLUSH SYRINGE 10 ML IV PRN
[2019-01-21] MEDS ORDERED: NITRO DUR TD SCH (15:00)
[2019-01-21 15:02] LABS: Basophils # (Auto) 0.1 K/mm3 (0.0-0.1); Basophils % (Auto) 0.8 % (0.0-1.8); Eosinophils # (Auto) 0.1 K/mm3 (0.0-0.4); Eosinophils % (Auto) 0.9 % (0.0-4.3); Hematocrit 41.9 % (35.5-45.6); Hemoglobin 14.2 gm/dl (11.8-15.2); Lymphocytes # (Auto) 1.7 K/mm3 (1.2-5.4); Mean Corpuscular HGB Conc 34 % (32-34); Mean Corpuscular Volume 87 fl (84-94); Monocytes # (Auto) 0.5 K/mm3 (0.0-0.8); Monocytes % (Auto) 6.6 % (0.0-7.3); Platelet Count 204 K/mm3 (140-440); Red Blood Count 4.82 M/mm3 (3.65-5.03); Red Cell Distribution Width 16.5 % (13.2-15.2)
--- NOTE | 2019-01-21 15:22 | Emergency Department Report ---
ED Chest Pain HPI - General Chief Complaint: Chest Pain Time Seen by Provider: 01/21/19 15:02 Source: patient, family, old records reviewed (pt was seen here 01/15 for cp in ed and sent home, 01/15 cxr neg) Mode of arrival: Wheelchair Limitations: Physical Limitation - History of Present Illness Initial Comments: 63-year-old male with a past medical history of diabetes on insulin, hypertension, and PAD with right BKA was sent to the ER for admission by Dr. Murillo for chest pain workup. Patient complains of intermittent sharp chest pain for last 2 weeks. Since being worse with inspiration and certain movements. He denies shortness of breath, nausea, vomiting, or diaphoresis. Significant history of PAD with admission for infected diabetic wound was passed July. Patient denies history of CAD or known cardiac issues. - Related Data Home Medications Medication Instructions Recorded Confirmed Last Taken AtorvaSTATin [Lipitor] 40 mg PO QHS 08/05/18 08/05/18 Unknown Humalog 100 UNITS/ML Kwikpen 50 units SQ TID 08/05/18 08/05/18 Unknown Insulin Detemir [Levemir VIAL] 70 unit SQ HS 08/05/18 08/05/18 Unknown Lisinopril [Zestril TAB] 40 mg PO QDAY 08/05/18 08/05/18 Unknown Metformin HCl 500 mg PO BID 08/05/18 08/05/18 Unknown Previous Rx's Medication Instructions Recorded Last Taken Type Doxycycline Hyclate [Doxycycline 100 mg PO BID #14 tablet 08/11/18 Unknown Rx Hyclate TAB] cephALEXin [Keflex] 500 mg PO Q8HR #28 cap 08/11/18 Unknown Rx Omeprazole 40 mg PO DAILY #30 capsule. 01/15/19 Unknown Rx Allergies Allergy/AdvReac Type Severity Reaction Status Date / Time No Known Allergies Allergy Verified 01/21/19 14:46 Heart Score - HEART Score History: Slightly suspicious EKG: Normal Age: 45-65 Risk factors: > 3 risk factors or hx of atherosclerotic disease Troponin: < normal limit HEART Score: 3 ED Review of Systems ROS: Stated complaint: Other details as noted in HPI Comment: All other systems reviewed and negative ED Past Medical Hx - Past Medical History Hx Hypertension: Yes Hx Diabetes: Yes Hx Renal Disease: No Additional medical history: AMPUTATEE gangrene - Surgical History Hx Pacemaker: No Additional Surgical History: RIGHT LEG - Social History Smoking Status: Current Every Day Smoker Substance Use Type: Alcohol, Marijuana - Medications Home Medications: Home Medications Medication Instructions Recorded Confirmed Last Taken Type AtorvaSTATin [Lipitor] 40 mg PO QHS 08/05/18 08/05/18 Unknown History Humalog 100 UNITS/ML Kwikpen 50 units SQ TID 08/05/18 08/05/18 Unknown History Insulin Detemir [Levemir VIAL] 70 unit SQ HS 08/05/18 08/05/18 Unknown History Lisinopril [Zestril TAB] 40 mg PO QDAY 08/05/18 08/05/18 Unknown History Metformin HCl 500 mg PO BID 08/05/18 08/05/18 Unknown History Doxycycline Hyclate [Doxycycline 100 mg PO BID #14 tablet 08/11/18 Unknown Rx Hyclate TAB] cephALEXin [Keflex] 500 mg PO Q8HR #28 cap 08/11/18 Unknown Rx Omeprazole 40 mg PO DAILY #30 capsule. 01/15/19 Unknown Rx ED Physical Exam - General Limitations: Physical Limitation - Other Other exam information: General: No limitations, patient is alert in no acute distress Head exam: Atraumatic, normocephalic Eyes exam: Normal appearance ENT: Moist mucous membrane, normal oropharynx Neck exam: Normal inspection, Respiratory exam: Clear to auscultation bilateral, no wheezes, rales, crackles, chest wall nontender Cardiovascular: Normal rate and rhythm, normal heart sounds Abdomen: Soft, nondistended, and nontender, with normal bowel sounds, no rebound, or guarding Extremity: Full range of motion normal inspection no deformity, right BKA Back: Normal Inspection, full range of motion, no tenderness Neurologic: Alert, oriented x3, cranial nerves intact Psychiatric: normal affect, normal mood ED Course Vital Signs 01/21/19 14:46 Temperature 97.8 F Pulse Rate 89 Respiratory 12 Rate Blood Pressure 133/71 [Right] O2 Sat by Pulse 99 Oximetry BEST score - Best Score Age > 65: (0) No Aspirin use within the Past 7 Days: (1) Yes 3 or more CAD Risk Factors: (1) Yes 2 or more Angina events in past 24 hrs: (0) No Known CAD with more than 50% Stenosis: (0) No Elevated Cardiac Markers: (0) No ST Deviation Greater than 0.5mm: (0) No BEST Score: 2 ED Medical Decision Making - Lab Data Result diagrams: 01/21/19 14:44 01/21/19 14:44 Lab Results 01/21/19 01/21/19 01/21/19 Range/Units 14:44 14:44 14:44 WBC 7.6 (4.5-11.0) K/mm3 RBC 4.82 (3.65-5.03) M/mm3 Hgb 14.2 (11.8-15.2) gm/dl Hct 41.9 (35.5-45.6) % MCV 87 (84-94) fl MCH 30 (28-32) pg MCHC 34 (32-34) % RDW 16.5 H (13.2-15.2) % Plt Count 204 (140-440) K/mm3 Lymph % (Auto) 22.0 (13.4-35.0) % [place] % (Auto) 6.6 (0.0-7.3) % Eos % (Auto) 0.9 (0.0-4.3) % Baso % (Auto) 0.8 (0.0-1.8) % Lymph # 1.7 (1.2-5.4) K/mm3 [place] # 0.5 (0.0-0.8) K/mm3 Eos # 0.1 (0.0-0.4) K/mm3 Baso # 0.1 (0.0-0.1) K/mm3 Seg Neutrophils % 69.7 (40.0-70.0) % Seg Neutrophils # 5.3 (1.8-7.7) K/mm3 PT 12.9 (12.2-14.9) Sec. INR 1.00 (0.87-1.13) APTT 36.4 (24.2-36.6) Sec. Sodium 138 (137-145) mmol/L Potassium 4.1 (3.6-5.0) mmol/L Chloride 108.0 H (98-107) mmol/L Carbon Dioxide 17 L (22-30) mmol/L Anion Gap 17 mmol/L BUN 21 H (9-20) mg/dL Creatinine 1.2 (0.8-1.5) mg/dL Estimated GFR > 60 ml/min BUN/Creatinine Ratio 18 % Glucose 228 H (75-100) mg/dL Calcium 10.0 (8.4-10.2) mg/dL Phosphorus (2.5-4.5) mg/dL Magnesium (1.7-2.3) mg/dL Total Bilirubin 0.20 (0.1-1.2) mg/dL AST 12 (5-40) units/L ALT 14 (7-56) units/L Alkaline Phosphatase 136 H (35-129) units/L Troponin T (0.00-0.029) ng/mL Total Protein 8.4 H (6.3-8.2) g/dL Albumin 3.6 L (3.9-5) g/dL Albumin/Globulin Ratio 0.8 % Triglycerides 110 (2-149) mg/dL Cholesterol 105 (50-199) mg/dL LDL Cholesterol Direct 57 (50-130) mg/dL TSH (0.270-4.200) mlU/mL 01/21/19 01/21/19 01/21/19 Range/Units 14:44 14:44 14:44 WBC (4.5-11.0) K/mm3 RBC (3.65-5.03) M/mm3 Hgb (11.8-15.2) gm/dl Hct (35.5-45.6) % MCV (84-94) fl MCH (28-32) pg MCHC (32-34) % RDW (13.2-15.2) % Plt Count (140-440) K/mm3 Lymph % (Auto) (13.4-35.0) % [place] % (Auto) (0.0-7.3) % Eos % (Auto) (0.0-4.3) % Baso % (Auto) (0.0-1.8) % Lymph # (1.2-5.4) K/mm3 [place] # (0.0-0.8) K/mm3 Eos # (0.0-0.4) K/mm3 Baso # (0.0-0.1) K/mm3 Seg Neutrophils % (40.0-70.0) % Seg Neutrophils # (1.8-7.7) K/mm3 PT (12.2-14.9) Sec. INR (0.87-1.13) APTT (24.2-36.6) Sec. Sodium (137-145) mmol/L Potassium (3.6-5.0) mmol/L Chloride (98-107) mmol/L Carbon Dioxide (22-30) mmol/L Anion Gap mmol/L BUN (9-20) mg/dL Creatinine (0.8-1.5) mg/dL Estimated GFR ml/min BUN/Creatinine Ratio % Glucose (75-100) mg/dL Calcium (8.4-10.2) mg/dL Phosphorus 3.10 (2.5-4.5) mg/dL Magnesium 1.50 L (1.7-2.3) mg/dL Total Bilirubin (0.1-1.2) mg/dL AST (5-40) units/L ALT (7-56) units/L Alkaline Phosphatase (35-129) units/L Troponin T < 0.010 (0.00-0.029) ng/mL Total Protein (6.3-8.2) g/dL Albumin (3.9-5) g/dL Albumin/Globulin Ratio % Triglycerides (2-149) mg/dL Cholesterol (50-199) mg/dL LDL Cholesterol Direct (50-130) mg/dL TSH 0.006 L (0.270-4.200) mlU/mL - EKG Data -: EKG Interpreted by Ut EKG shows normal: axis (qrs 11), QRS complexes (qrsd 91), ST-T waves (no stemi) Rate: normal - EKG Data When compared to previous EKG there are: no significant change - Medical Decision Making Patient sent by PMD for admission to the ER. Initial enzymes negative without signs of ST elevation FL. Initial orders have been placed by Dr. Murillo - Differential Diagnosis FL, pulmonary embolism, unstable angina, muscular skeletal pain Critical Care Time: No Critical care attestation.: If time is entered above; I have spent that time in minutes in the direct care of this critically ill patient, excluding procedure time. ED Disposition Clinical Impression: Chest pain, Insulin dependent diabetes mellitus Disposition: OP ADMIT IP TO THIS HOSP Is pt being admited?: Yes Condition: Stable Time of Disposition: 15:44 (Dr Murillo)
[2019-01-21 15:25] LABS: Alanine Aminotransferase 14 units/L (7-56); Albumin 3.6 g/dL (3.9-5); BUN/Creatinine Ratio 18; Blood Urea Nitrogen 21 mg/dL (9-20); Hemolysis Index 6; LDL Cholesterol,Direct 57 mg/dL (50-130); Partial Thromboplastin Time 36.4 Sec. (24.2-36.6)
[2019-01-21] MEDS: MORPHINE IV PRN ×2 (15:28→21:56)
[2019-01-21] MEDS: ASPIRIN PO SCH (15:28)
[2019-01-21 15:56] LABS: HDL Cholesterol 35 mg/dL (40-59)
[2019-01-21] MEDS: LOVENOX SUB-Q SCH (18:10)
[2019-01-21] MEDS: NITRO DUR TD SCH (19:00)
--- NOTE | 2019-01-21 20:49 | History and Physical Report ---
History of Present Illness Date of examination: 01/21/19 Date of admission: 01/21/19 14:30 Chief complaint: Chest pain - 2 weeks duration History of present illness: Patient is 64-year-old gentleman who has a history of diabetes mellitus, hypertension, peripheral arterial disease status post right BKA, wheelchair bound, was seen in the ER on 01/15/2019 for chest pain. Troponin levels were normal. EKG was unremarkable at a time. Patient was discharged. However his chest pain continued. He presented to my office today and coming out of her daughter still complaining of the same left-sided chest pain. Abdominal in nature. 6-7/10 in severity. Denies any shortness of breath or diaphoresis. Patient is which have bound down for minimally exerts himself. EKG in the office was abnormal compared to the one that was done on 01/15/2019 and hospital. Admission was therefore requested through the emergency department has his payer source would not permit dirtect admission. On admission first cardiac enzyme was normal. EKG hospital she was sinus rhythm. However given the fact the patient has multiple risk factors as shown above including being a current smoker, including being a current smoker patient was admitted for further cardiac workup Past History Past Medical History: diabetes, hypertension, PVD, other (a right BKA, wound on the right thigh that is discharging) Past Surgical History: Other (right BKA) Social history: smoking. denies: alcohol abuse, prescription drug abuse Family history: hypertension Medications and Allergies Allergies Allergy/AdvReac Type Severity Reaction Status Date / Time No Known Allergies Allergy Verified 01/21/19 14:46 Home Medications Medication Instructions Recorded Confirmed Last Taken Type AtorvaSTATin [Lipitor] 40 mg PO QHS 08/05/18 08/05/18 Unknown History Humalog 100 UNITS/ML Kwikpen 50 units SQ TID 08/05/18 08/05/18 Unknown History Insulin Detemir [Levemir VIAL] 70 unit SQ HS 08/05/18 08/05/18 Unknown History Lisinopril [Zestril TAB] 40 mg PO QDAY 08/05/18 08/05/18 Unknown History Metformin HCl 500 mg PO BID 08/05/18 08/05/18 Unknown History Doxycycline Hyclate [Doxycycline 100 mg PO BID #14 tablet 08/11/18 Unknown Rx Hyclate TAB] cephALEXin [Keflex] 500 mg PO Q8HR #28 cap 08/11/18 Unknown Rx Omeprazole 40 mg PO DAILY #30 capsule. 01/15/19 Unknown Rx Active Meds: Active Medications Aspirin (Aspirin) 325 mg PO QDAY [facility] Last Admin: 01/21/19 15:28 Dose: 325 mg Documented by: Enoxaparin Sodium (Lovenox) 40 mg SUB-Q QDAY [facility] Last Admin: 01/21/19 18:10 Dose: 40 mg Documented by: Morphine Sulfate (Morphine) 2 mg IV Q4H PRN PRN Reason: Pain, Moderate (4-6) Last Admin: 01/21/19 15:28 Dose: 2 mg Documented by: Nitroglycerin (Nitro Dur) 0.1 mg TD QDAY [facility] Last Admin: 01/21/19 19:00 Dose: 0.1 mg Documented by: Sodium Chloride (Sodium Chloride Flush Syringe 10 Ml) 10 ml IV BID [facility] Sodium Chloride (Sodium Chloride Flush Syringe 10 Ml) 10 ml IV PRN PRN PRN Reason: LINE FLUSH Review of systems Constitutional: Well Nourished and Well developed. Head: NC/ AT Eyes: Denies any visual impairments. No discharge from the eyes Nose: Denies any rhinorrhea or epistaxis Throats: Denies any post nasal drainage. Ears: Denies any hearing deficits Cardiovascular system: Complains of chest pain, shortness of breath, orthopnea, paroxysmal nocturnal dyspnea, or palpitation. Respiratory system: Denies any cough, difficulty breathing, wheezing, pleuritic chest pain, Gastrointestinal system: Denies any abdominal pain, nausea vomiting, hematemesis or melena. Neurological system: Denies any headache, slurred speech, facial droop, lateralizing weakness Genitalia system: Denies any dysuria, urinary frequency or urgency, urethral discharge Skin: No rashes, hyperpigmented spots. Hematological: Denies any cervical tenderness hemorrhages or petechia. Immunological: Denies any multiple septic spots, Lymphatic: Denies any generalized lymphadenopathy. Endocrine: Denies any polyuria, polydipsia, polyphagia. No heat or cold intolerance. Musculoskeletal system: No joint pain or swelling. Psych: No visual, tactile, auditory or hallucination Exam - Physical Exam Narrative exam: Constitutional: Well-nourished well-developed. In no distress Head: Normocephalic atraumatic Eyes: Pupils are equal round and reactive to light Nose: No enlarged turbinates, no septal deviation. Mouth: Moist mucous membranes. Neck: Supple no thyromegaly. No bruit. No JVD Heart: Regular rate and rhythm, S1-S2 normal. No rubs murmurs or gallop Lungs: Clear to auscultation bilaterally. no rales or rhonchi Abdomen: Soft, nontender. Bowel sound are present. Extremities: Right BKA, No edema, no cyanosis, no clubbing left leg. Neuro: Alert oriented Oriented x3. No focal sensory or motor deficit. Skin: Wound on the distal end of the right thigh,POA. No rashes or hyperpigmented spots Musculoskeletal system: No joint pain or swelling Hematological: No petechia or subcutanous hemorrhages. Immunological: No multiple septic spots on the skin Lymphatic: No generalized lymphadenopathy Psychiatry: Euthymic. Calm. - Constitutional Vitals: Temp Pulse Resp BP Pulse Ox 98.1 F 74 18 140/77 98 01/21/19 17:22 01/21/19 19:00 01/21/19 17:22 01/21/19 19:00 01/21/19 17:22 Results - Labs CBC & Chem 7: 01/21/19 14:44 01/21/19 14:44 Labs: Abnormal lab results 01/21/19 01/21/19 01/21/19 Range/Units 14:44 14:44 14:44 RDW 16.5 H (13.2-15.2) % Chloride 108.0 H (98-107) mmol/L Carbon Dioxide 17 L (22-30) mmol/L BUN 21 H (9-20) mg/dL Glucose 228 H (75-100) mg/dL POC Glucose (70-105) Magnesium 1.50 L (1.7-2.3) mg/dL Alkaline Phosphatase 136 H (35-129) units/L Total Protein 8.4 H (6.3-8.2) g/dL Albumin 3.6 L (3.9-5) g/dL HDL Cholesterol 35 L (40-59) mg/dL TSH (0.270-4.200) mlU/mL 01/21/19 01/21/19 Range/Units 14:44 17:30 RDW (13.2-15.2) % Chloride (98-107) mmol/L Carbon Dioxide (22-30) mmol/L BUN (9-20) mg/dL Glucose (75-100) mg/dL POC Glucose 221 H (70-105) Magnesium (1.7-2.3) mg/dL Alkaline Phosphatase (35-129) units/L Total Protein (6.3-8.2) g/dL Albumin (3.9-5) g/dL HDL Cholesterol (40-59) mg/dL TSH 0.006 L (0.270-4.200) mlU/mL Assessment and Plan 63 year old gentleman who was a history of diabetes mellitus hypertension, peripheral arterial disease, current smoker, persistent chest pain for the past 2 weeks with one previous emergency room attendance was discharged presented with continuing chest pain for weak admission was requested complete cardiac workup given his multiple risk factors. He also has a wound on the distal end of the right thigh, POA right BKA. Admits to telemetry for -Chest pain Troponin T every 63 This patient on oxygen, nitroglycerin, aspirin, morphine. Stress thallium if second set of serial cardiac enzymes are normal - PAD Continue with present medication Antiplatelet - Diabetes mellitus type 2 Check A1c, urinary microalbumin Lipid profile Sliding-scale insulin Consistent carbohydrate diet -Discharging her wound distal end of the right thigh, POA Wound culture Wound care consult - Tobacco use disorder Tobacco cessation counseling was done - DVT prophylaxis with Lovenox and GI with Pepcid - CODE STATUS: Patient is full code Time spent 40 minutes
[2019-01-21] MEDS ORDERED: D50W (25GM) Syringe IV PRN (21:01)
[2019-01-21] MEDS ORDERED: LANTUS SUB-Q SCH (22:00)
[2019-01-21] MEDS: VIBRAMYCIN PO SCH (22:05)
[2019-01-21] MEDS: ZESTRIL PO SCH (22:06)
[2019-01-21] MEDS: SODIUM CHLORIDE FLUSH SYRINGE 10 ML IV SCH (22:07)
[2019-01-21] MEDS: GLUCOPHAGE PO SCH (22:07)
[2019-01-21] MEDS: HumaLOG SUB-Q SCH (22:09)
[2019-01-22 01:32] LABS: Creatinine,Urine < 4.2 mg/dL (0.1-20.0)
[2019-01-22] MEDS: MORPHINE IV PRN ×2 (03:42→07:42)
[2019-01-22 03:49] LABS: Basophils # (Auto) 0.1 K/mm3 (0.0-0.1); Basophils % (Auto) 0.7 % (0.0-1.8); Eosinophils # (Auto) 0.1 K/mm3 (0.0-0.4); Hematocrit 39.5 % (35.5-45.6); Lymphocytes # (Auto) 2.8 K/mm3 (1.2-5.4); Lymphocytes % (Auto) 39.2 % (13.4-35.0); Mean Corpuscular HGB Conc 33 % (32-34); Mean Corpuscular Volume 87 fl (84-94); Monocytes # (Auto) 0.6 K/mm3 (0.0-0.8); Monocytes % (Auto) 8.9 % (0.0-7.3); Platelet Count 190 K/mm3 (140-440); Red Blood Count 4.52 M/mm3 (3.65-5.03); Red Cell Distribution Width 16.8 % (13.2-15.2)
[2019-01-22 04:11] LABS: Alanine Aminotransferase 14 units/L (7-56); Albumin 3.3 g/dL (3.9-5); BUN/Creatinine Ratio 16; Blood Urea Nitrogen 21 mg/dL (9-20); Calcium 9.8 mg/dL (8.4-10.2); Hemolysis Index 2
[2019-01-22] MEDS ORDERED: LEXISCAN IV ONE (07:50)
[2019-01-22] MEDS: HumaLOG SUB-Q SCH ×2 (08:07→13:04)
[2019-01-22] MEDS: GLUCOPHAGE PO SCH ×2 (08:07→18:23)
--- NOTE | 2019-01-22 10:14 | Event Note ---
Date: 01/22/19 nuc cardiac stress test: normal lv systolic function. lv ef 59%. no significant evidence of myocardial ischemia or necrosis
--- NOTE | 2019-01-22 10:30 | Treadmill Report ---
NUCLEAR CARDIAC IMAGING REPORT INDICATION FOR PROCEDURE: Chest pain. Informed consent was obtained. Vasodilator stress was achieved with the intravenous administration of 0.4 mg of Lexiscan per protocol. Nuclear cardiac imaging was performed with the intravenous administration of technetium-99m Myoview per protocol for rest and stress acquisitions. Imaging was performed in a 180-degree arc from 45 degrees WELSH to 45 degrees LPO. Images after data acquisition and reconstruction, the images were processed and reoriented into the vertical long, horizontal long, and horizontal short axis slices. A polar color map of the horizontal short axis slices was generated and reviewed. The rotating planar images were viewed in cinematic format on the computer console. Gated SPECT imaging demonstrates a post-stress left ventricular ejection fraction of 59% with normal wall motion. Myocardial perfusion imaging demonstrates no significant stress-induced reversible perfusion abnormalities. There is no significant cavity change between stress and rest. Nuclear cardiac imaging demonstrates grossly normal post-stress left ventricular systolic function with no significant evidence for myocardial ischemia or necrosis. [facility]# [id number] QAMAR/EMMA
[2019-01-22] MEDS: ASPIRIN PO SCH (10:38)
[2019-01-22] MEDS: LOVENOX SUB-Q SCH (10:38)
[2019-01-22] MEDS: VIBRAMYCIN PO SCH (10:38)
[2019-01-22] MEDS: ZESTRIL PO SCH (10:38)
[2019-01-22] MEDS: SODIUM CHLORIDE FLUSH SYRINGE 10 ML IV SCH (10:39)
[2019-01-22] MEDS: NITRO DUR TD SCH (10:57)
[2019-01-22] MEDS ORDERED: MAGNESIUM SULFATE 2GM/50ML 2 GM/50 ML BAG IV ONE (18:22)
--- NOTE | 2019-01-22 18:27 | Discharge Summary ---
Providers - Providers Date of Admission: 01/21/19 14:30 Date of discharge: 01/22/19 Attending physician: CASSIDY REZA 01/21/19 14:33 Consult to Wound/ET Nurse [CONS] Urgent Reason For Exam: wound eval AND TX RT. THIGH WOUND CARE. Primary care physician: CASSIDY REZA Hospitalization Condition: Stable Hospital course: -Chest pain Troponins were normal Stress test was normal - PAD Continue with present medication Antiplatelet Diabetes mellitus type 2 Sliding-scale insulin Consistent carbohydrate diet Distal end of the right thigh wound, POA Wound care Costochondritis Meloxicam and Percocet prn Prescription given Tobacco use disorder Tobacco cessation counseling was done F/u with Dr reza - Disposition: DC-01 TO HOME OR SELFCARE Core Measure Documentation - Palliative Care Palliative Care/ Comfort Measures: Not Applicable - Core Measures Any of the following diagnoses?: none Exam - Constitutional Vitals: Temp Pulse Resp BP Pulse Ox 97.4 F L 75 16 123/67 97 01/22/19 12:00 01/22/19 12:00 01/22/19 12:00 01/22/19 12:00 01/22/19 12:00 General appearance: Present: no acute distress, well-nourished - EENT Eyes: Present: PERRL ENT: hearing intact, clear oral mucosa - Neck Neck: Present: supple, normal ROM - Respiratory Respiratory effort: normal Respiratory: bilateral: CTA - Cardiovascular Heart rate: 78 Rhythm: regular Heart Sounds: Present: S1 & S2. Absent: rub, click - Extremities Extremities: pulses symmetrical, No edema, abnormal (Rt BKA) Peripheral Pulses: within normal limits - Abdominal General gastrointestinal: Present: soft, non-tender, non-distended, normal bowel sounds Male genitourinary: Present: normal - Integumentary Integumentary: Present: clear, warm, dry - Musculoskeletal Musculoskeletal: gait normal, strength equal bilaterally - Psychiatric Psychiatric: appropriate mood/affect, intact judgment & insight - Neurologic Neurologic: CNII-XII intact, moves all extremities - Allied Health Allied health notes reviewed: nursing, case management Plan Activity: no restrictions Diet: diabetic
[2019-01-22 18:34] VITALS: BP 131/77
== END 2019-01-22 19:30 | disposition home or self-care (01) | DRG 206 ==
LOC: ED 14:27 → EDSTATUS 14:27 → 4A 14:30
PROVIDERS: ADMIT Family Medicine; ATTEND Family Medicine
DX: M94.0 Chondrocostal junction syndrome [Tietze] (principal); S71.101A Unspecified open wound, right thigh, initial encounter; I10 Essential (primary) hypertension; E11.51 Type 2 diabetes mellitus with diabetic peripheral angiopathy without gangrene; X58.XXXA Exposure to other specified factors, initial encounter; F17.200 Nicotine dependence, unspecified, uncomplicated; Z79.4 Long term (current) use of insulin; Z89.511 Acquired absence of right leg below knee; Z99.3 Dependence on wheelchair; Z82.49 Family history of ischemic heart disease and other diseases of the circulatory system; Z71.6 Tobacco abuse counseling; Y93.89 Activity, other specified; Y92.89 Other specified places as the place of occurrence of the external cause; Y99.8 Other external cause status
CPT/HCPCS: 36415; 78452; 80053; 80061; 82043; 82962; 83735; 84100; 84443; 84484; 85025; 85610; 85730; 93005; 93010; 93017; 94760; G0378; A9270-GY; A9502; J1650; J1815; J2270; J2785; J3475

== ENCOUNTER 2020-04-16 15:33 | Emergency (ER) | payer MEDICARE ==
[2020-04-16 15:55] VITALS: BP 152/80
[2020-04-16] MEDS ORDERED: dexAMETHasone 4 MG/ML VIAL IM ONE (16:16)
[2020-04-16] MEDS ORDERED: ACETAMINOPHEN 325 MG TAB PO ONE (16:16)
[2020-04-16] MEDS ORDERED: traMADol 50 MG TAB PO ONE (16:16)
--- NOTE | 2020-04-16 18:02 | Emergency Department Report ---
ED Neck Pain/Injury HPI - General Chief Complaint: Neck Pain/Injury Stated Complaint: NECK PAIN Time Seen by Provider: 04/16/20 16:10 Mode of arrival: Ambulatory Limitations: No Limitations - History of Present Illness Initial Comments: Patient is a 64-year-old male presents emergency room with complaints of neck pain that exacerbated this morning. He states that the pain radiates to his shoulders. He states that he initially had a 2 months ago but this morning when he woke up the pain had increased. He denies any fall or injury. He denies any vomiting, fever, numbness, unilateral weakness. He has a past medical history of diabetes, hypertension and leg amputation. - Related Data Home Medications Medication Instructions Recorded Confirmed Last Taken Humalog 100 UNITS/ML Kwikpen 50 units SQ TID 08/05/18 01/22/19 Unknown Insulin Detemir [Levemir VIAL] 70 unit SQ HS 08/05/18 01/22/19 01/21/19 Metformin HCl 500 mg PO BID 08/05/18 01/22/19 01/21/19 Previous Rx's Medication Instructions Recorded Last Taken Type Doxycycline Hyclate [Doxycycline 100 mg PO BID #14 tablet 08/11/18 01/21/19 Rx Hyclate TAB] cephALEXin [Keflex] 500 mg PO Q8HR #28 cap 08/11/18 Unknown Rx Omeprazole 40 mg PO DAILY #30 capsule. 01/15/19 01/21/19 Rx AtorvaSTATin [Lipitor] 40 mg PO QHS tablet 01/22/19 Unknown Rx Insulin Aspart Protam & Aspart 20 unit SQ BID #5 pen 01/22/19 Unknown Rx [NovoLOG Mix 70-30 Flexpen] Insulin Glargine,Hum.rec.anlog 30 unit SQ QHS #5 insuln.pen 01/22/19 Unknown Rx [Lantus Solostar] Meloxicam [Qmiiz Odt] 15 mg PO QDAY #10 tab.rapdis 01/22/19 Unknown Rx Oxycodone HCl/Acetaminophen 1 each PO Q6HR PRN #12 tablet 01/22/19 Unknown Rx [Percocet 7.5/325 mg] lisinopriL [Zestril TAB] 40 mg PO QDAY tablet 01/22/19 Unknown Rx Acetaminophen [Tylenol] 650 mg PO Q8HR PRN #20 capsule 04/16/20 Unknown Rx traMADoL [Ultram 50 MG tab] 50 mg PO Q6HR PRN #10 tablet 04/16/20 Unknown Rx Allergies Allergy/AdvReac Type Severity Reaction Status Date / Time No Known Allergies Allergy Verified 01/21/19 14:46 ED Review of Systems ROS: Stated complaint: NECK PAIN Other details as noted in HPI Comment: All other systems reviewed and negative ED Past Medical Hx - Past Medical History Previous Medical History?: Yes Hx Hypertension: Yes Hx Congestive Heart Failure: No Hx Diabetes: Yes Hx Renal Disease: No Hx Asthma: No Hx COPD: No Additional medical history: AMPUTATEE gangrene - Surgical History Past Surgical History?: Yes Hx Pacemaker: No Additional Surgical History: RIGHT LEG - Social History Smoking Status: Current Every Day Smoker Substance Use Type: Prescribed - Medications Home Medications: Home Medications Medication Instructions Recorded Confirmed Last Taken Type Humalog 100 UNITS/ML Kwikpen 50 units SQ TID 08/05/18 01/22/19 Unknown History Insulin Detemir [Levemir VIAL] 70 unit SQ HS 08/05/18 01/22/19 01/21/19 History Metformin HCl 500 mg PO BID 08/05/18 01/22/19 01/21/19 History Doxycycline Hyclate [Doxycycline 100 mg PO BID #14 tablet 08/11/18 01/22/19 01/21/19 Rx Hyclate TAB] cephALEXin [Keflex] 500 mg PO Q8HR #28 cap 08/11/18 01/22/19 Unknown Rx Omeprazole 40 mg PO DAILY #30 capsule. 01/15/19 01/22/19 01/21/19 Rx AtorvaSTATin [Lipitor] 40 mg PO QHS tablet 01/22/19 Unknown Rx Insulin Aspart Protam & Aspart 20 unit SQ BID #5 pen 01/22/19 Unknown Rx [NovoLOG Mix 70-30 Flexpen] Insulin Glargine,Hum.rec.anlog 30 unit SQ QHS #5 insuln.pen 01/22/19 Unknown Rx [Lantus Solostar] Meloxicam [Qmiiz Odt] 15 mg PO QDAY #10 tab.rapdis 01/22/19 Unknown Rx Oxycodone HCl/Acetaminophen 1 each PO Q6HR PRN #12 tablet 01/22/19 Unknown Rx [Percocet 7.5/325 mg] lisinopriL [Zestril TAB] 40 mg PO QDAY tablet 01/22/19 Unknown Rx Acetaminophen [Tylenol] 650 mg PO Q8HR PRN #20 capsule 04/16/20 Unknown Rx traMADoL [Ultram 50 MG tab] 50 mg PO Q6HR PRN #10 tablet 04/16/20 Unknown Rx ED Physical Exam - General Limitations: No Limitations General appearance: alert, in no apparent distress - Head Head exam: Present: atraumatic, normocephalic - Eye Eye exam: Present: normal appearance - ENT ENT exam: Present: mucous membranes moist - Neck Neck exam: Present: normal inspection, tenderness (bilateral C-spine paraspinal muscular ttp, no midline C-spine ttp, no step offs, no deformities), full ROM - Respiratory Respiratory exam: Present: normal lung sounds bilaterally. Absent: respiratory distress, wheezes, rales, rhonchi, stridor, chest wall tenderness, accessory muscle use, decreased breath sounds, prolonged expiratory - Cardiovascular Cardiovascular Exam: Present: regular rate, normal rhythm, normal heart sounds. Absent: systolic murmur, diastolic murmur, rubs, gallop - Back Exam Back exam: Present: normal inspection, full ROM. Absent: paraspinal tenderness, vertebral tenderness - Neurological Exam Neurological exam: Present: alert, oriented X3, CN II-XII intact. Absent: motor sensory deficit - Psychiatric Psychiatric exam: Present: normal affect, normal mood - Skin Skin exam: Present: warm, dry, intact ED Course Vital Signs 04/16/20 15:52 Temperature 98.1 F Pulse Rate 90 Respiratory 14 Rate Blood Pressure 152/80 O2 Sat by Pulse 99 Oximetry ED Medical Decision Making - Radiology Data Radiology results: report reviewed CERVICAL SPINE 5 VIEWS INDICATION / CLINICAL INFORMATION: neck pain. COMPARISON: None available. FINDINGS: VERTEBRAE: No acute fracture. No significant malalignment. DISC SPACES / FACET JOINTS:Multilevel degenerative changes and uncovertebral hypertrophy are noted of the cervical spine most prominent at C5-C6 level. Large bridging osteophytes are noted on the left side. PARASPINAL SOFT TISSUES:No significant abnormality. ADDITIONAL FINDINGS: None. Signer Name: Megan Barakat MD Signed: 04/16/2020 6:01 PM Workstation Name: [id number] Transcribed By: Dictated By: MEGAN BARAKAT Electronically Authenticated By: MEGAN BARAKAT Signed Date/Time: 04/16/201800 DD/ 58 TD/TT: - Medical Decision Making Patient is a 64-year-old male presents emergency room with complaints of neck pain that exacerbated this morning. He states that the pain radiates to his shoulders. He states that he initially had a 2 months ago but this morning when he woke up the pain had increased. He denies any fall or injury. He denies any vomiting, fever, numbness, unilateral weakness. He has a past medical history of diabetes, hypertension and leg amputation. VSS. on exam:bilateral C-spine paraspinal muscular ttp, no midline C-spine ttp, no step offs, no deformities, no focal neuro deficits. XR C-spine: VERTEBRAE: No acute fracture. No significant malalignment. DISC SPACES / FACET JOINTS:Multilevel degenerative changes and uncovertebral hypertrophy are noted of the cervical spine most prominent at C5-C6 level. Large bridging osteophytes are noted on the left side. PARASPINAL SOFT TISSUES:No significant abnormality. ADDITIONAL FINDINGS: None. pt given tylenol, tramadol, and dexamethasone IM. pt was resting comfortably on reexamination. discussed all results with pt and answered questions. he states that he feels much better and is ready to go home. pt given prescription for Tylenol and tramadol. advised pt Please take medication as prescribed as needed. Do not drive or operate machinery when taking pain medication due to potential for drowsiness. May use ice pack, heating pad, rest, and salt bath. Follow-up with your primary care doctor. Return to emergency room for any new or worsening symptoms. - Differential Diagnosis strain, sprain, fx, DDD, bulging disc, cerivcal radiculopathy, arthritis Critical care attestation.: If time is entered above; I have spent that time in minutes in the direct care of this critically ill patient, excluding procedure time. ED Disposition Clinical Impression: Neck pain Degenerative disc disease Qualifiers: Spinal region: mid-cervical Mid-cervical spinal level: C5-C6 Qualified Code(s): M50.322 - Other cervical disc degeneration at C5-C6 level Disposition: DC-01 TO HOME OR SELFCARE Is pt being admited?: No Does the pt Need Aspirin: No Condition: Stable Instructions: Arthralgia (ED), Degenerative Disc Disease (ED) Additional Instructions: Please take medication as prescribed as needed. Do not drive or operate machinery when taking pain medication due to potential for drowsiness. May use ice pack, heating pad, rest, and salt bath. Follow-up with your primary care doctor. Return to emergency room for any new or worsening symptoms. Prescriptions: Acetaminophen [Tylenol] 650 mg PO Q8HR PRN #20 capsule PRN Reason: pain traMADoL [Ultram 50 MG tab] 50 mg PO Q6HR PRN #10 tablet PRN Reason: Pain , Severe (7-10) Referrals: CASSIDY REZA MD [Primary Care Provider] - 2-3 Days Time of Disposition: 18:12 Print Language: CROATIAN
--- NOTE | 2020-04-16 18:05 | XRay Report ---
CERVICAL SPINE 5 VIEWS INDICATION / CLINICAL INFORMATION: neck pain. COMPARISON: None available. FINDINGS: VERTEBRAE: No acute fracture. No significant malalignment. DISC SPACES / FACET JOINTS:Multilevel degenerative changes and uncovertebral hypertrophy are noted of the cervical spine most prominent at C5-C6 level. Large bridging osteophytes are noted on the left s mychal. PARASPINAL SOFT TISSUES:No significant abnormality. ADDITIONAL FINDINGS: None. Signer Name: Onesimo Arteaga MD Signed: 04/16/2020 6:01 PM Workstation Name: [id number]
== END 2020-04-16 19:10 | disposition home or self-care (01) ==
LOC: ED 15:33
DX: M50.322 Other cervical disc degeneration at C5-C6 level (principal); I10 Essential (primary) hypertension; F17.200 Nicotine dependence, unspecified, uncomplicated; E11.9 Type 2 diabetes mellitus without complications; Z79.899 Other long term (current) drug therapy; Z79.4 Long term (current) use of insulin
CPT/HCPCS: 72040; 96372; 99283; J1100